=== PATIENT | male | born 1955 | race Caucasian/White ===

== ENCOUNTER 2024-03-06 15:42 | Emergency (ER) | payer MEDICARE, SELFPAY ==
[2024-03-06 15:44] VITALS: BP 169/91; PULSE 97; RESP 18; TEMP 36.2; O2SAT 96
[2024-03-06 16:33] LABS: Abs Immature Grans 0.01 10^3/uL (0.0-0.06); Absolute Basophil Count 0.01 10^3/uL (0.0-0.2); Absolute Lymphocyte Count 1.45 10^3/uL (1.2-3.4); Absolute Monocyte Count 0.46 10^3/uL (0.1-0.8); Absolute Neutrophil Count 4.27 10^3/uL (1.2-6.7); Basophils % 0.2 %; Eosinophils % 1.6 %; HGB 14.8 g/dL (13.5-17.5); Immature Grans % 0.2 %; MCH 32.7 pg (27.0-33.0); MCHC 33.6 % (32.0-36.0); MCV 97 fL (80-95); MPV 8.7 fL (8.0-11.0); Monocytes % 7.3 %; Neutrophils % 67.7 %; Platelet Count 184 10^3/uL (130-400); RBC 4.53 10^6/uL (4.36-5.78); RDW 12.8 % (11.8-14.1); RDW-SD 46.2 fL
[2024-03-06 16:40] LABS: ALT 12 U/L (16-63); AST 17 U/L (15-37); Albumin 4.1 g/dL (3.4-5.0); Alkaline Phosphatase 96 U/L (46-116); Anion Gap 5.4 mmol/L (3-11); BUN 19 mg/dL (7-18); Bilirubin, Total 0.43 mg/dL (0.2-1.0); CO2 31.6 mmol/L (21.0-32.0); CREATININE 0.9 mg/dL (0.70-1.30); Chloride 106 mmol/L (98-107); Estimated GFR 93.03 (mL/min/1.73m2); Glucose 111 mg/dL (74-106); Lipase 43 U/L (<78); Potassium 4.1 mmol/L (3.5-5.1); Sodium 143 mmol/L (136-145); Total Protein 7.7 g/dL (6.4-8.2)
[2024-03-06] MEDS: fentaNYL 100 MCG/2 ML VIAL 50 MCG IVP (16:40)
[2024-03-06] MEDS: Omnipaque 350 MG/ML 100 ML BTL IJ (16:58)
[2024-03-06] MEDS: Normal Saline - Diluent 50 ML VIAL IJ (16:59)
--- NOTE | 2024-03-06 16:59 | DI.CT_ITS ---
Exam(s) CT CHEST/ABD/PEL W EXAM: CT CHEST/ABD/PEL W CLINICAL HISTORY: right flank pain, and posterior thorax pain/fall. TECHNIQUE: Imaging Protocol: Axial computed tomography images with coronal and sagittal reformatted images were created and reviewed CONTRAST MATERIAL: Intravenous: Omnipaque 350 Contrast volume:100 ml Oral: None COMPARISON: No exams were available for comparison FINDINGS: CHEST: LUNGS: There is some calcified pleural plaque over the anterior aspect of both upper lobes. Also ove r the posterior left lower lobe. Also atelectasis in the anterior basal segment of the left lower lo be. There is no evidence of lung contusion, confluent infiltrate, pleural effusion, nor pneumothorax . No significant findings in the trachea and mainstem bronchi.. MEDIASTINUM: No evidence of sternal fracture nor mediastinal hematoma. No incidental hilar nor media stinal adenopathy. No axillary adenopathy. CARDIAC: Heart size is normal. There is no pericardial effusion.Thoracic aorta appears unremarkable. Normal size. No dissection. OSSEOUS: No rib fractures. No vertebral fractures. No significant osseous lesions. ABDOMEN: No evidence of prominent subcutaneous bruising nor fluid collections in the subcutaneous fat. There is no ascites. No evidence of mesenteric nor bowel wall hematoma. LIVER: Intact. No lacerations. No incidental lesions. No dilated intrahepatic ducts. GALLBLADDER/BILIARY: No obvious gallbladder pathology. CBD is not dilated. PANCREAS: No evidence of pancreatic mass nor dilatation of the pancreatic duct. SPLEEN: Intact. Normal size. No lacerations. Splenic granulomas noted. Splenic and portal veins a re patent. ADRENALS: No adrenal masses nor adrenal hemorrhage. KIDNEYS: Intact. No lacerations nor subcapsular hematomas.. No cysts nor solid lesions in the kidne ys. No calculi. No hydronephrosis ABDOMINAL AORTA: Intact. No aneurysm. No dissection. Aortoiliac segments also are intact LYMPH NODES: There is no retroperitoneal nor paraaortic adenopathy. ABDOMINAL WALL: No evidence of anterior abdominal wall hematomas. Small fat only containing inguinal hernias bilaterally. GI: There is evidence of previous distal small bowel surgery.There is some dilated fluid-filled small bowel loops measuring up to 3.5 cm in diameter. The colon is not collapsed. There is no ascites. PELVIS: LYMPH NODES: There is no intrapelvic nor inguinal adenopathy. GI: No evidence of appendicitis.No evidence of sigmoid diverticulitis. URINARY BLADDER: No calculi nor masses evident REPRODUCTIVE: Prostate size upper normal. OSSEOUS: There are no pelvic nor hip fractures. Sacrum intact. There are no vertebral compression f ractures nor transverse process fractures. IMPRESSION: 1. No evidence of significant acute trauma sequelae in the chest, abdomen pelvis 2. However, there is evidence of prior distal small bowel surgery and there are mildly dilated fluid- filled mid and distal small bowel loops. There is no evidence bowel wall hematoma nor mesenteric hem atoma. 3. Other incidental findings as above. Report called by myself to ER provider 03/06/2024 at 5:25 p.m. RADIATION DOSE DELIVERED: 495.18mGy.cm Total DLP DATA REPOSITORY: All CT scans at this facility are submitted to the National Radiology Data Registry (NRDR) Dose Index Registry (DIR) with the [employer] ([employer]). RADIATION OPTIMIZATION: All CT scans at this facility use at least one of these dose optimization te chniques: automated exposure control; mA and/or kV adjustment per patient size (includes targeted exa ms where dose is matched to clinical indication); or iterative reconstruction.
--- NOTE | 2024-03-06 17:02 | W.ED.GENAD ---
Discharge Plan Disposition Patient Disposition: Home Condition: Stable Discharge Details Clinical Impression: Contusion of back Primary Care Provider: Axel Jiménez ED Provider: Idalia Markham Home Meds and New Rx's Prescriptions: New morphine 15 mg tablet 15 mg PO BID PRNQty: 6 0RF Continued carbidopa-levodopa 2 tab PO QID Patient Comments: Two separate strengths 20/100 and 50/200, both administered QID duloxetine [Cymbalta] 30 mg capsule,delayed release(DR/EC) 90 mg PO DAILY risperidone 4 mg tablet 5 mg PO DAILY Discharge Instructions Instructions: Bruised Rib (DC) Additional Instructions: Use the spirometer, at least 12 times a day full inhalation and exhalation If the Lidoderm patch reapply works, you may purchase [id number] Lidoderm patches, 12 hours on, 12 hours off for the Lidoderm patches You may take ibuprofen 400 mg every 8 hours with food You may use Tylenol 650 every 6 hours, do not exceed 3 g of Tylenol daily I have written a prescription for morphine as needed for pain, this is an addictive medication and should be used sparingly, and may also cause constipation so if you have adequate pain relief with the ibuprofen and Tylenol please do not take this medication You also have to be careful with opiate medications with Parkinson's disease as it may exacerbate your symptoms If you develop shortness of breath, fever, or worsening cough please be reevaluated immediately Referrals: Axel Jiménez [Primary Care Provider] - 3 days HPI General Date/Time Provider Initiated Documentation: 03/06/24 15:52. HPI Narrative: 69-year-old gentleman with history of Parkinson's disease presents with report of fall secondary to his Parkinson's, his left leg giving out just prior to arrival. States he fell from standing landing on his right flank. Adamantly denies any head injury. Denies any history of coagulopathy. Denies any hematuria. States he has pain with breathing and movement to the affected area. He denies any chest pain and feels as though he has some shortness of breath secondary to discomfort with taking a full inhalation. Denies any additional complaints at this time. Denies any right hip pain or lower extremity pain. Denies any chest pain Related Data Home Medications ?Medication ?Instructions ?Recorded ?Confirmed carbidopa-levodopa 2 tab PO QID 03/06/24 03/06/24 duloxetine 30 mg capsule,delayed 90 mg PO DAILY 03/06/24 03/06/24 release (Cymbalta) morphine 15 mg immediate release 15 mg PO BID PRN #6 tabs 03/06/24 tablet risperidone 4 mg tablet 5 mg PO DAILY 03/06/24 03/06/24 Previous Rx's ?Medication ?Instructions ?Recorded morphine 15 mg immediate release 15 mg PO BID PRN #6 tabs 03/06/24 tablet Allergies Allergy/AdvReac Type Severity Reaction Status Date / Time doxycycline AdvReac Intermediate GI Bleeding Verified 03/06/24 15:49 General Stated Complaint: Fall/Non TraumaCriteria JANAY: 3 Exam Narrative Exam Narrative: Patient in no acute distress, alert and oriented, GCS 15, pupils equal round reactive to light and accommodation, no cervical spine tenderness no visible signs of head trauma, lungs clear to auscultation, cardiac rate rhythm regular, no abdominal tenderness, tenderness in the CVA region with an abrasion and ecchymosis, no rebound or guarding on abdominal exam, GCS 15 alert and oriented x 4, no evidence of injury to bilateral lower extremities Course Vital Signs Vital signs: Vital Signs Temperature 36.2 C L 03/06/24 15:44 Pulse 97 H 03/06/24 15:44 Respiratory Rate 18 03/06/24 15:44 Blood Pressure 169/91 H 03/06/24 15:44 Pulse Oximetry 96 03/06/24 15:44 Temperature 36.2 C L 03/06/24 15:44 Temperature Source Oral 03/06/24 15:44 Pulse 97 H 03/06/24 15:44 Respiratory Rate 18 03/06/24 15:44 Respiratory Effort Normal, Non-Labored 03/06/24 15:47 Blood Pressure 169/91 H 03/06/24 15:44 Blood Pressure Position Sitting 03/06/24 15:44 Pulse Oximetry 96 03/06/24 15:44 Oxygen Delivery Method Room Air 03/06/24 15:44 Oxygen Flow Rate 0 03/06/24 15:44 Lab/Test Results Lab/Test Results: Laboratory Tests Range/Units 03/06/24 16:18 WBC (4.4-10.8) 10^3/uL 6.30 RBC (4.36-5.78) 10^6/uL 4.53 Hgb (13.5-17.5) g/dL 14.8 Hct (40.0-50.0) % 44.0 MCV (80-95) fL 97 H MCH (27.0-33.0) pg 32.7 MCHC (32.0-36.0) % 33.6 RDW (11.8-14.1) % 12.8 Plt Count (130-400) 10^3/uL 184 MPV (8.0-11.0) fL 8.7 Immature Gran % % 0.2 Neutrophils % % 67.7 Lymphocytes % % 23.0 Monocytes % % 7.3 Eosinophils % % 1.6 Basophils % % 0.2 Nucleated RBC % (0.0-0.3) % 0.0 Absolute Neutrophils (1.2-6.7) 10^3/uL 4.27 Absolute Lymphocytes (1.2-3.4) 10^3/uL 1.45 Absolute Monocytes (0.1-0.8) 10^3/uL 0.46 Absolute Eosinophils (0.0-0.7) 10^3/uL 0.10 Absolute Basophils (0.0-0.2) 10^3/uL 0.01 Sodium (136-145) mmol/L 143 Potassium (3.5-5.1) mmol/L 4.1 Chloride (98-107) mmol/L 106 Carbon Dioxide (21.0-32.0) mmol/L 31.6 Anion Gap (3-11) mmol/L 5.4 BUN (7-18) mg/dL 19 H Creatinine (0.70-1.30) mg/dL 0.9 Est GFR (CKD-EPI 2020) (mL/min/1.73m2) 93.03 Glucose (74-106) mg/dL 111 H Calcium (8.5-10.1) mg/dL 9.0 Total Bilirubin (0.2-1.0) mg/dL 0.43 AST (15-37) U/L 17 ALT (16-63) U/L 12 L Alkaline Phosphatase (46-116) U/L 96 Total Protein (6.4-8.2) g/dL 7.7 Albumin (3.4-5.0) g/dL 4.1 Lipase (<78) U/L 43 Medical Decision Making 69-year-old male in no acute distress presenting post fall with history of Parkinson's. Secondary to his ecchymosis on right flank and age, I did order CTA chest abdomen pelvis which did not show evidence of acute abnormality, I personally discussed this feel with Dr. Langley, radiologist. CBC CMP and diagnostic labs are otherwise unremarkable. Patient remains alert and oriented, improvement of pain after receiving some fentanyl. No obvious rib fracture, however given patient's high risk for developing pneumonia, I did supply a spirometer with some pain medication at home to control pain should patient have a rib fracture that we are unable to visualize on CT. He will take at least 12 full inhalation Xanax elations daily. He is given the threshold to return with new or worsening complaints. Return precautions reviewed and patient expressed understanding. Quality:SDOH Health Related Social Needs: No Data to Display [employer] All Active Problems (Updated 03/06/24 @ 17:44 by SHEFALI Caro) Contusion of back (Acute) Social History Smoking/Tobacco Use Status: Never Smoking risk assessment performed?: Yes Drug use: Never Substance use type: does not use PAWSS Have you Been Recently Intoxicated or Drunk Within the Last 30 days?: No Have you Ever Experienced Previous Episodes of Alcohol Withdrawal?: No Have you ever Experienced Withdrawal Seizures?: No Have you ever Experienced Delirium Tremens(DT)s?: No Have you ever undergone Alcohol Rehabilitation Treatment (i.e, inpt ot outpatient treatment programs)?: No Have you ever Experienced Blackouts?: No Have you ever Combined Alcohol with other Downers within the last 90 days?: No Have you ever Combined Alcohol with any other Substance of Abuse during the last 90 days?: No Positive Blood Alcohol level on Presentation? [PCS.BAL]: No Evidence of Increased Autonomic Activity (i.e. HR>120, tremor, sweating, agitation, nausea)?: No Result: 0
[2024-03-06 17:23] VITALS: BP 146/67; PULSE 82; RESP 18; O2SAT 96
--- OUTSIDE RECORDS SUMMARY | 2024-03-06 17:29 | XMS_ITS ---
Author Organization [facility] Address [address], [place] [id number] Care Team Providers Care Call Center Assistant Name Role Phone Sendy Boothe Primary Care Provider Axel Jiménez MD [phone] Allergies Allergen (clinical drug ingredient) Drug/Non Drug Allergy documented on EMR Reaction Allergy Type Onset Date Status doxycycline Doxycycline Bloody Stool Drug Allergy Active Results Component Value Reference Range Notes CMP Reviewed date:08/13/2023 08:30:47 AM Interpretation: Performing Lab:NL1, [facility] [id number] [place], [place] [id number] Kori Olvera M.D. Notes/Report: Received Date: NON-FASTING NON-FASTING NON-FASTING GLUCOSE 89 65-99 mg/dL Fasting reference interval UREA NITROGEN (BUN) 24 7-25 mg/dL CREATININE 0.83 0.70-1.35 mg/dL EGFR 96 > OR = 60 mL/min/1.73m2 BUN/CREATININE RATIO SEE NOTE: 09-27 (calc) Not Reported: BUN and Creatinine are within reference range. SODIUM 137 135-146 mmol/L POTASSIUM 4.5 3.5-5.3 mmol/L CHLORIDE 103 98-110 mmol/L CARBON DIOXIDE 30 20-32 mmol/L CALCIUM 9.5 8.6-10.3 mg/dL PROTEIN, TOTAL 7.3 6.1-8.1 g/dL ALBUMIN 4.6 3.6-5.1 g/dL GLOBULIN 2.7 1.9-3.7 g/dL (calc) ALBUMIN/GLOBULIN RATIO 1.7 1.0-2.5 (calc) BILIRUBIN, TOTAL 0.5 0.2-1.2 mg/dL ALKALINE PHOSPHATASE 72 35-144 U/L AST 18 10-35 U/L ALT 10 9-46 U/L PSA TOTAL Reviewed date:08/13/2023 08:34:18 AM Interpretation:1.25 Performing Lab:REPLACED BY [facility], [facility] [id number] Kori Olvera M.D. Notes/Report: Received Date: NON-FASTING NON-FASTING NON-FASTING PSA, TOTAL 1.25 < OR = 4.00 ng/mL The total PSA value from this assay system is standardized against the WHO standard. The test result will be approximately 20% lower when compared to the equimolar-standardized total PSA (Mariza Scio). Comparison of serial PSA results should be interpreted with this fact in mind. This test was performed using the Siemens chemiluminescent method. Values obtained from different assay methods cannot be used interchangeably. PSA levels, regardless of value, should not be interpreted as absolute evidence of the presence or absence of disease. LIPID PANEL Reviewed date:08/13/2023 08:33:56 AM Interpretation:WNL Performing Lab:REPLACED BY [facility], [facility] [id number] Kori Olvera M.D. Notes/Report: Received Date: NON-FASTING NON-FASTING NON-FASTING CHOLESTEROL, TOTAL 211 <200 mg/dL HDL CHOLESTEROL 57 > OR = 40 mg/dL TRIGLYCERIDES 123 <150 mg/dL LDL-CHOLESTEROL 131 Reference range: <100 Desirable range <100 mg/dL for primary prevention; <70 mg/dL for patients with CHD or diabetic patients with > or = 2 CHD risk factors. LDL-C is now calculated using the Ari-Ruy calculation, which is a validated novel method providing better accuracy than the Friedewald equation in the estimation of LDL-C. Ari RAMIREZ et al. JOSE. 2013;310(19): 7917-4219 (http://[employer].ParentingInformer/faq/FUX972) CHOL/HDLC RATIO 3.7 <5.0 (calc) NON HDL CHOLESTEROL 154 <130 mg/dL (calc) For patients with diabetes plus 1 major ASCVD risk factor, treating to a non-HDL-C goal of <100 mg/dL (LDL-C of <70 mg/dL) is considered a therapeutic option. REASON FOR VISIT AWV, AAA screening, Lung screening, Due for TDaP, Shingrix, PCV send to Pharm Medications Medication SIG (Take, Route, Frequency, Duration) Notes Start Date End Date Status DULoxetine HCl 60 MG 1 capsule Orally On ce a day for 30 day(s) Active DULoxetine HCl 30 MG 1 capsule Orally On ce a day for 30 day(s) Active Carbidopa-Levodopa ER 50-200 MG 1 tablet Orally Every 4 hours Active Shingrix 50 MCG/0.5ML as directed Intram uscular for 30 days 08/09/2023 Active Prevnar 20 0.5 ML as directed Intramus cular once a day for 1 days 08/09/2023 Active Boostrix 5-2.5-18.5 LF-MCG/0.5 as directed Intramuscular for 30 days 08/09/2023 Active Carbidopa-Levodopa 25-100 MG 1 tablet Orally Every 4 hours Active busPIRone HCl 5 MG 1 tablet Orally thre e times daily Active Social History Tobacco Use: Social History Observation Description Date Details (start date - stop date) Never Smoker NA - NA Sex Assigned At : Social History Observation Description Sex Assigned At Male Tobacco Control (Standard) Question Answer Notes Tobacco use: Nonsmoker Vital Signs Temperature 97.1 degrees Fahrenheit 08/09/19 24 Blood pressure systolic 128 mmHg 08/09/19 24 Blood pressure diastolic 70 mmHg 024 Heart Rate 87 BPM 08/09/2023 Respiratory Rate 18 /min 08/09/2023 Height 72 in 08/09/2023 Weight 213 lbs 08/09/2023 BMI 28.88 kg/m2 08/09/2023 Oximetry 98 % 08/09/2023 Procedures Procedure Date Ordered Date Performed Result Body Sit e GET UP AND GO TEST 08/09/2023 08/09/2023 Fail Encounters Encounter Location Date Provider Diagnosis [address] [id number] 08/09/2023 Axel Jiménez MD Dietary counseling Z71.3 ; Encounter for annual wellness visit (AWV) in Medicare patient Z00.00 ; Parkinsons disease G20 ; Frequent urination R35.0 ; Screening for cardiovascular condition Z13.6 and Screening for diabetes mellitus Z13.1 Assessments Encounter Date Diagnosis (ICD Code) Assessment Notes Treatment Notes Treatment Clinical Notes Section Notes 08/09/2023 Dietary counseling (ICD-10 - Z71.3) HIS ANA JOINED US AND WE TOUCHED BASE ON THE ANXIETY AND MENTAL HEALTH ISSUES. THEY ARE IN AGREEMENT TO GET THE COLONOSCOPY SET UP. LABS HAVE BEEN DRAWN AND VACCINES ORDERED AND WE'LL PLAN TO COME BACK IN THE [place] FOR FLU SHOT AND INTERVAL CHECK, AND HE'LL CONTINUE FOLLOW UP WITH NEUROLOGY AT [facility] A SCHEDULED. 08/09/2023 Encounter for annual wellness visit (AWV) in Medicare patient (ICD-10 - Z00.00) HIS ANA JOINED US AND WE TOUCHED BASE ON THE ANXIETY AND MENTAL HEALTH ISSUES. THEY ARE IN AGREEMENT TO GET THE COLONOSCOPY SET UP. LABS HAVE BEEN DRAWN AND VACCINES ORDERED AND WE'LL PLAN TO COME BACK IN THE [place] FOR FLU SHOT AND INTERVAL CHECK, AND HE'LL CONTINUE FOLLOW UP WITH NEUROLOGY AT [facility] A SCHEDULED. 08/09/2023 Parkinsons disease (ICD-10 - G20) HIS ANA JOINED US AND WE TOUCHED BASE ON THE ANXIETY AND MENTAL HEALTH ISSUES. THEY ARE IN AGREEMENT TO GET THE COLONOSCOPY SET UP. LABS HAVE BEEN DRAWN AND VACCINES ORDERED AND WE'LL PLAN TO COME BACK IN THE [place] FOR FLU SHOT AND INTERVAL CHECK, AND HE'LL CONTINUE FOLLOW UP WITH NEUROLOGY AT [facility] A SCHEDULED. 08/09/2023 Frequent urination (ICD-10 - R35.0) HIS ANA JOINED US AND WE TOUCHED BASE ON THE ANXIETY AND MENTAL HEALTH ISSUES. THEY ARE IN AGREEMENT TO GET THE COLONOSCOPY SET UP. LABS HAVE BEEN DRAWN AND VACCINES ORDERED AND WE'LL PLAN TO COME BACK IN THE [place] FOR FLU SHOT AND INTERVAL CHECK, AND HE'LL CONTINUE FOLLOW UP WITH NEUROLOGY AT [facility] A SCHEDULED. 08/09/2023 Screening for cardiovascular condition (ICD-10 - Z13.6) HIS ANA JOINED US AND WE TOUCHED BASE ON THE ANXIETY AND MENTAL HEALTH ISSUES. THEY ARE IN AGREEMENT TO GET THE COLONOSCOPY SET UP. LABS HAVE BEEN DRAWN AND VACCINES ORDERED AND WE'LL PLAN TO COME BACK IN THE [place] FOR FLU SHOT AND INTERVAL CHECK, AND HE'LL CONTINUE FOLLOW UP WITH NEUROLOGY AT [facility] A SCHEDULED. 08/09/2023 Screening for diabetes mellitus (ICD-10 - Z13.1) HIS ANA JOINED US AND WE TOUCHED BASE ON THE ANXIETY AND MENTAL HEALTH ISSUES. THEY ARE IN AGREEMENT TO GET THE COLONOSCOPY SET UP. LABS HAVE BEEN DRAWN AND VACCINES ORDERED AND WE'LL PLAN TO COME BACK IN THE [place] FOR FLU SHOT AND INTERVAL CHECK, AND HE'LL CONTINUE FOLLOW UP WITH NEUROLOGY AT [facility] A SCHEDULED. 08/09/[address] Axel Jiménez by Mik Dutton, [employer] medical receptionist, on 08/09/2023. I, Dr. Axel Jiménez, have personally reviewed and agreed with the information entered by the scribe. HIS ANA JOINED US AND WE TOUCHED BASE ON THE ANXIETY AND MENTAL HEALTH ISSUES. THEY ARE IN AGREEMENT TO GET THE COLONOSCOPY SET UP. LABS HAVE BEEN DRAWN AND VACCINES ORDERED AND WE'LL PLAN TO COME BACK IN THE [place] FOR FLU SHOT AND INTERVAL CHECK, AND HE'LL CONTINUE FOLLOW UP WITH NEUROLOGY AT [facility] A SCHEDULED. Plan Of Treatment Medication Medication Name Sig Start Date Stop Date Notes Shingrix 50 MCG/0.5ML as directed Intram uscular for 30 days 08/09/2023 Prevnar 20 0.5 ML as directed Intramus cular once a day for 1 days 08/09/2023 Boostrix 5-2.5-18.5 LF-MCG/0.5 as directed Intramuscular for 30 days 08/09/2023 Treatment Notes Assessment Notes Other Scribed for Dr. Alf Jiménez by Mik Dutton, [employer] medical receptionist, on 08/09/2023. I, Dr. Axel Jiménez, have personally reviewed and agreed with the information entered by the scribe. Next Appt Details Follow Up: 1 Year,prn, Reaso n: AWV Progress Notes * Cristian EMMANUEL DDOB:[birth year] (68 yo M)Acc No.[id number]:08/09/2023 Progress Note Patient:?Cristian EMMANUEL Provider:?Axel Jiménez M.D. :1955???Age:68 Y???Sex:Male Oral e:08/09/2023 Phone: Address:[address] [place], [place]-[id number] Pcp:Sendy Boothe Subjective: * Chief Complaints: * ???1. AWV. 2. AAA screening, Lung screening. 3. Due for TDaP, Shingrix, PCV send to Pharm. * HPI: ???INTERIM HISTORY::? PATIENT IS A 68-YEAR-OLD MALE PRESENTING FOR A AWV. HE REPORTS HE IS DOING WELL. REPORTS PAIN IN HIS LEFT KNEE AND FEELING OFF BALANCE DUE TO PARKINSONS DISEASE. NOTES RECENT FALL, HE WAS ABLE TO GET UP OK BUT GETTING TO THE POINT WHERE HE NEEDS HELP GETTING UP. OPEN TO PT.? HE ALSO NOTES HE WAS TOLD HE HAS A HERNIA DURING A LAPAROSCOPIC PROCEDURE. HE HAS HAD NO ISSUES. BLADDER IS GOOD, URINATING EVERY 3 HRS, BOWELS ARE REGULAR. EATING IS GOOD, ABLE TO SWALLOW WITHOUT ANY DIFFICULTY. HE ALSO REPORTS ANXIETY LIKE WHEN DRIVING?TO SEE HIS FAMILY IN [place], [place], WHEN HIS IS OUT OF TOWN. HAS A SUPPORT GROUP. HE IS RETIRED. LIVES WITH HIS AND 2 CATS. DAUGHTER LIVES IN [facility]. FAMILY HX OF PARKINSONS IN [place] SISTER, GRANDFATHER. FOLLOWS UP WITH NEUROLOGY. LIPIDS 3 YEARS AGO WERE GOOD. NO OTHER ISSUES TODAY. ???DIET/EXERCISE::?DIET:?Do you follow a particular diet??None on file ?EXERCISE:?Do you currently exercise??None on file ?How many days per week do you exercise??2 to 3 ?On a day you exercise, how many minutes do you spend exercising??1 hour or more ?Types of exercise:?Core strengthening,Other: ?FOOD INSECURITY QUESTIONS?In the last 12 months, I worried whether my food would run out before I got money to buy more.?Never true ?In the last 12 months, the food that I bought just didn't last, and I didn't have money to get more.?Never true ?In the last 12 months, I couldn't afford to eat balanced meals.?Never true ?Do you receive any type of supplemental food assistance??No ???[facility]::?OTHER PROVIDERS:?Has the patient seen any providers outside of [facility] since their last appointment with us??No ?[facility]?[place] [facility] reviewed??. ???PREVENTIVE MEDICINE::?DENTAL SCREENING:?Does the patient receive routine dental care??No ?Date of last dental exam:?04/08/2023 ?Where does the patient go for routine dental care??[facility] ?VISION SCREENING:?Does the patient receive routine eye exams??No ?Date of last eye exam:?Where does the patient go for routine eye care??[facility]?Would you like to become in the next year??. ???Depression Screening:?PHQ-2 (2015 Edition)?Little interest or pleasure in doing things??Not at all ?Total Score?0 ???DENTAL::?DENTAL HOME ?Does Patient have dental home??Yes ?Has the patient been seen in the past six months??No ?Last dental appointment date?REQUIRED DATA::?ADVANCE DIRECTIVE:?Does the patient have an Advance Directive??No ?Does [facility] have a copy of the Advance Directive on file??No . ?Was the patient offered the Advance Directive paperwork to create one??Patient was offered paperwork but declined it ?Was the importance of having an Advance Directive on file with PCP explained to the patient??Yes ?Date Advanced Directive was last addressed with patient:?08/09/2023 ?HEALTH LITERACY:?How often do you need to have someone help when you read instructions, pamphlets or other materials from your doctor or pharmacy??1-Never ?OPIOID SCREENING?Does the patient have a current opioid prescription??No . ???MENTAL HEALTH::?MINI MENTAL STATUS:?Immediate Recall Gabriella, Chair, Hand (2 trials even if correct)?Gabriella, Chair, Hand First trial, . ?Delayed Recall several minutes later with no cue?Pass ?Draw the face of a clock showing all 12 numbers?Pass ?Draw the time to be ten minutes past eleven.?Pass ???A CHECKLIST FOR YOUR MEDICARE ANNUAL WELLNESS VISIT::?AWV QUESTIONNAIRE:?During the past 4 weeks, how much have you been bothered by emotional problems such as feeling anxious, depressed, irritable, sad or downhearted and blue??Moderately ?During the past 4 weeks, has your physical and emotional health limited your social activities with family, friends, neighbors or groups??Slightly ?During the past 4 weeks, how much bodily pain have you generally had??Mild pain ?During the past 4 weeks, was someone available to help you if you needed and wanted help??Yes, as much as I wanted ?During the past 4 weeks, what was the hardest physical activity you could do for at least 2 minutes??Very heavy ?Can you get places out of walking distance without help??Yes ?Can you shop for groceries or clothes without help??No ?Can you prepare your own meals??Yes ?Can you do your own housework without help??No ?Can you handle your own money without help??No ?Do you need help eating, bathing, dressing or getting around your home??Yes ?During the past 4 weeks, how would you rate your health in general??Good ?How have things been going for you during the past 4 weeks??Good and bad parts about equal ?Are you having difficulties driving your car??Not applicable, I do not use a car ?Do you always fasten your seat belt when you are in a car??Yes, usually ?How often during the past 4 weeks have you been bothered by a fall or feeling dizzy when standing up??Sometimes ?How often during the past 4 weeks have you been bothered by sexual problems??Seldom ?How often during the past 4 weeks have you been bothered by trouble eating well??Seldom ?How often during the past 4 weeks have you been bothered by teeth or dentures??Seldom ?How often during the past 4 weeks have you been bothered by problems using the telephone??Seldom ?How often during the past 4 weeks have you been bothered by feeling tired or fatigued??Often ?Have you fallen 2 or more times in the past year??Yes ?Are you a smoker??Yes and I might quit ?During the past 4 weeks, how many drinks of wine, beer or other alcoholic beverages did you have??10 or more drinks per week ?Did you exercise for about 20 minutes 3 or more days a week??No, I usually don't exercise this much ?Have you been given any information to help you with hazards in your house that might hurt you??No ?Have you been given any information to help you with keeping track of your medications??No ?How often do you have trouble taking medicines the way you have been told to take them??I always take them as prescribed ?How confident are you that you can control and manage most of your health problems??Very confident ?Are you afraid of falling??No * ROS:?Pertinent positives and negatives noted in HPI. * Medical History:?Parkinsons, Depression, Hernia, Gerd. * Surgical History:?Appendecto my, perforated 11/2019, Dopamine pump removal 04/2019, Deep brain stimulator 04/2018, Percutaneous endoscopic j-tube X6 months 2018, Bilateral inguinal hernia repair as an . * Hospitalization/Major Diagno stic Procedure:?Appendectomy w/perforation- 3 days [facility] 11/2019, Deep Brain Stimulator- 2 days [place], [place] 04/2018. * Family History:?Mother: dece ased, Parkinsons, diagnosed with Unspecified heart disease.?Father: , Parkinsons, Prostate Cancer, Migraines, diagnosed with Other malignant neoplasm of unspecified site, Unspecified cerebral artery occlusion with cerebral infarction.?Sister: alive.?3 daughter(s) - healthy. .? * Social History:?TOBACCO USE:?Tobacco Control (Standard)?Tobacco use:?Nonsmoker * Medications:?Taking busPIRon e HCl 5 MG Tablet 1 tablet Orally three times daily , Taking Carbidopa-Levodopa 25-100 MG Tablet 1 tablet Orally Every 4 hours , Taking Carbidopa-Levodopa ER 50-200 MG Tablet Extended Release 1 tablet Orally Every 4 hours , Taking DULoxetine HCl 60 MG Capsule Delayed Release Particles 1 capsule Orally Once a day , Taking DULoxetine HCl 30 MG Capsule Delayed Release Sprinkle 1 capsule Orally Once a day , Discontinued Vitamin B3 tablet 1 tablet orally once daily , Discontinued Clotrimazole 1 % Ointment 1 application Externally Twice a day , Medication List reviewed and reconciled with the patient * Allergies:?Doxycycline: Bloo dy Stool - Allergy. Objective: * Vitals:?Temp:97.1F, HR:87BPM , RR:18/min, BP:128/70mmHg, Oxygen Sat: 98 %, Height: 72 in, Weight: 213 lbs, BMI:28.88Index, Wt-k.62, Ht-cm: 182.88. * Examination: ???General Examination: ?GENERAL APPEARANCE:?BRIGHT, ALERT, COMFORTABLE.?EYES:?PUPILS EQUAL AND REACTIVE.?ORAL CAVITY:?BENIGN.?NECK/THYROID:?NO NECK NODES.?HEART:?SOUNDS BENIGN, CAROTIDS 2+, STRONG, NO BRUIT..?LUNGS:?CLEAR.?ABDOMEN:?BELLY SOFT AND BENIGN.?SKIN:?DRY, NO WORRISOME LESION FROM WAIST UP.?NEUROLOGIC:?COGWHEELING IN BOTH ARMS, MASK FACES DESPITE SOME HUMOR IN THE CONVERSATION, HE NEVER SMILED. ?FINGER TO NOSE POINTING WAS NORMAL, SMOOTH. HE WAS ABLE TO GET HIS CHIN TO HIS SHOULDERS BILATERALLY. ?SHORT BASED SHUFFLING GAIT, HIS INTACT STIMULATOR IN THE CHEST, DEEP BRAIN STIMULATOR.?EXTREMITIES:?TRACE, IF ANY EDEMA.? Assessment: * Assessment: 1.?Encounter for annual well ness visit (AWV) in Medicare patient - Z00.00 (Primary)?2.?Dietary counseling - Z71.3?3.?Parkinsons disease - G20?4.?Frequent urination - R35.0?5.?Screening for cardiovascular condition - Z13.6?6.?Screening for diabetes mellitus - Z13.1? HIS ANA JOINED US AND WE TOUCHED BASE ON THE ANXIETY AND MENTAL HEALTH ISSUES. THEY ARE IN AGREEMENT TO GET THE COLONOSCOPY SET UP. LABS HAVE BEEN DRAWN AND VACCINES ORDERED AND WE'LL PLAN TO COME BACK IN THE [place] FOR FLU SHOT AND INTERVAL CHECK, AND HE'LL CONTINUE FOLLOW UP WITH NEUROLOGY AT [facility] A SCHEDULED. Plan: * Treatment: 2.?Frequent urination?LAB: PSA TOTAL ? Value Reference Range ?PSA TOTAL 1.25 < OR = 4.00 - ng/mL * Tino DESHPANDE Axel 2023 07:35:13 AM EDT >PLEASE TELL CRISTIAN HIS LABS ARE NORMAL - Marco CHRISTOPHER MA, Mikki 08/13/2023 08:34:10 AM EDT > Spoke with ptThis lab was reviewed by Mikki Last MA on 08/13/2023 at 08:34 AM EDT 3.?Screening for cardiovascular condition?LAB: LIPID PANEL* ? Value Reference Range ?CHOLESTEROL 211 H <200 - mg/d L * ?TRIGLYCERIDES 123 <150 - mg /dL * ?LDL 131 H - mg/dL (calc) * ?HDL 57 > OR = 40 - mg/ dL * ?RISK 3.7 <5.0 - (calc) * ?NON-HDL CHOLESTEROL 154 H <13 0 - mg/dL (calc) * Tino DESHPANDE Axel 2023 07:35:13 AM EDT >PLEASE TELL CRISTIAN HIS LABS ARE NORMAL - GOOD Marco OVERTON MA, Mikki 08/13/2023 08:33:54 AM EDT > Spoke wiht ptThis lab was reviewed by Mikki Last MA on 08/13/2023 at 08:33 AM EDT 4.?Screening for diabetes mellitus?LAB: CMP* ? Value Reference Range ?GLUCOSE 89 65-99 - mg/dL * ?BUN 24 7-25 - mg/dL * ?CREATININE 0.83 0.70-1.35 - mg/dL * ?SODIUM 137 135-146 - mmol/ L * ?POTASSIUM 4.5 3.5-5.3 - mmo l/L * ?CHLORIDE 103 98-110 - mmol/ L * ?CARBON DIOXIDE 30 20-32 - mmol/L * ?CALCIUM 9.5 8.6-10.3 - mg/d L * ?BUN/CREATININE RATIO SEE NOTE: 6- 22 - (calc) * ?AST/SGOT 18 10-35 - U/L * ?ALT/SGPT 10 9-46 - U/L * ?ALKALINE PHOSPHATASE 72 35 -144 - U/L * ?BILIRUBIN TOTAL 0.5 0.2-1.2 - mg/dL * ?ALBUMIN 4.6 3.6-5.1 - g/dL * ?PROTEIN TOTAL 7.3 6.1-8.1 - g/dL * ?ALBUMIN/GLOBULIN RATIO 1.7 1.0-2.5 - (calc) * ?GLOBULIN 2.7 1.9-3.7 - g/dL (calc) * ?EGFR 96 > OR = 60 - mL/ min/1.73m2 * Tino DESHPANDE, Axel Mota 2023 07:35:13 AM EDT >PLEASE TELL CRISTIAN HIS LABS ARE NORMAL - GOOD [facility], ENEDINA Lara Angela 08/13/2023 08:30:30 AM EDT > Spoke with ptThis lab was reviewed by Mikki Last MA on 08/13/2023 at 08:30 AM EDT 5.?Others? Start Boostrix Suspension Prefilled Syringe, 5-2.5-18.5 LF-MCG/0.5, as directed, Intramuscular, 30 days, 1, Refills 0;?Start Prevnar 20 Suspension Prefilled Syringe, 0.5 ML, as directed, Intramuscular, once a day, 1 days, 1, Refills 2;?Start Shingrix Suspension Reconstituted, 50 MCG/0.5ML, as directed, Intramuscular, 30 days, 1, Refills 2.?? Notes:Scribed for Dr. Axel Jiménez by Mik Dutton, virtual medical receptionist, on 08/09/2023. I, Dr. Axel Jiménez, have personally reviewed and agreed with the information entered by the scribe.?? * Procedure Orders:? * ?Procedure: GET UP AND G O TEST (Performed Date - 08/09/2023)?Fail * Procedure Codes:?G0468 FQ VISIT IPPE/AWV, 75721 PT-FOCUSED HLTH RISK ASSMT, 32811 PHYSICAL MEDICINE PROCEDURE, 80980 PHYSICAL MEDICINE PROCEDURE, G0439 ANNUAL WELLNESS SUBSEQUENT VISIT * Follow Up:?1 Year,prn (Reaso n: AWV) * * Sign off status: Completed true * Provider:?Axel Jiménez M.D. Oral e:?08/09/2023 Generated for Allisoni haritha/Melva/eTransmitting on:?03/06/2024 05:29 PM EST History and Physical Notes * HPI (History of Present Illness) Category Sub-Category Detail Notes Category Not es REQUIRED DATA: ADVANCE DIRECTIVE: Does the emilia ent have an Advance Directive?: No Does [facility] have a copy of the Advance Dir ective on file?: No . Was the patient offered the Advance Directive paperwork to create one?: Patient was offered paperwork but declined it Was the importance of having an Advance Directive on file with PCP explained to the patient?: Yes Date Advanced Directive was last address ed with patient:: 08/09/2023 HEALTH LITERACY: How often do you nee d to have someone help when you read instructions, pamphlets or other materials from your doctor or pharmacy?: 1-Never OPIOID SCREENING Does the patient have a current opioid prescription?: No . DIET/EXERCISE: EXERCISE: Do you currently exercise?: None on file How many days per week do you exercise?: 2 to 3 On a day you exercise, how m any minutes do you spend exercising?: 1 hour or more Types of exercise:: Core strengthening,O ther: DIET: Do you follow a particular diet? : None on file FOOD INSECURITY QUESTIONS In the last 12 months, I worried whether my food would run out before I got money to buy more. : Never true In the last 12 months, the f ood that I bought just didn't last, and I didn't have money to get more.: Never true In the last 12 months, I couldn't afford to eat balanced meals. : Never true Do you receive any type of supplemental food assistance?: No PREVENTIVE MEDICINE: DENTAL SCREENING: Does the patient receive routine dental care?: No Date of last dental exam:: 04/08/2023 Where does the patient go for routine de ntal care?: [facility] VISION SCREENING: Does the patient receive routi ne eye exams?: No Date of last eye exam:: Where does the patient go for routine ey e care?: [facility] Would you like to beco me in the next year?: . [facility]: OTHER PROVIDERS: Has the patient seen any providers outside of [facility] since their last appointment with us?: No [facility] [place] [facility] reviewed?: . MENTAL HEALTH: MINI MENTAL STATUS: Immediate Re call Gabriella Chair, Hand (2 trials even if correct): Gabriella Chair, Hand First trial, . Delayed Recall several minutes later wit h no cue: Pass Draw the face of a clock showing all 12 numbers: Pass Draw the time to be ten minutes past dario esther. : Pass DENTAL: DENTAL HOME Does Patient have dental home?: Yes ?Has the patient been seen in the past s ix months?: No ?Last dental appointment date?: A CHECKLIST FOR YOUR MEDICAR E ANNUAL WELLNESS VISIT: AWV QUESTIONNAIRE: During the past 4 weeks, how much have you been bothered by emotional problems such as feeling anxious, depressed, irritable, sad or downhearted and blue?: Moderately During the past 4 weeks, has your physical and emotional health limited your social activities with family, friends, neighbors or groups?: Slightly During the past 4 weeks, how much bodily pain have you generally had?: Mild pain During the past 4 weeks, was someone available to help you if you needed and wanted help?: Yes, as much as I wanted During the past 4 weeks, wha t was the hardest physical activity you could do for at least 2 minutes?: Very heavy Can you get places out of walking distan ce without help?: Yes Can you shop for groceries or clothes wi thout help?: No Can you prepare your own meals?: Yes Can you do your own housework without he lp?: No Can you handle your own money without he lp?: No Do you need help eating, bathing, dressi ng or getting around your home?: Yes During the past 4 weeks, how would you r ate your health in general?: Good How have things been going f or you during the past 4 weeks?: Good and bad parts about equal Are you having difficulties driving your car?: Not applicable, I do not use a car Do you always fasten your seat belt when you are in a car?: Yes, usually How often during the past 4 weeks have you been bothered by a fall or feeling dizzy when standing up?: Sometimes How often during the past 4 weeks have you been bothered by sexual problems?: Seldom How often during the past 4 weeks have you been bothered by trouble eating well?: Seldom How often during the past 4 weeks have you been bothered by teeth or dentures?: Seldom How often during the past 4 weeks have you been bothered by problems using the telephone?: Seldom How often during the past 4 weeks have you been bothered by feeling tired or fatigued?: Often Have you fallen 2 or more times in the p ast year?: Yes Are you a smoker?: Yes and I might quit During the past 4 weeks, how many drinks of wine, beer or other alcoholic beverages did you have?: 10 or more drinks per week Did you exercise for about 2 0 minutes 3 or more days a week?: No, I usually don't exercise this much Have you been given any info rmation to help you with hazards in your house that might hurt you?: No Have you been given any info rmation to help you with keeping track of your medications?: No How often do you have troubl e taking medicines the way you have been told to take them?: I always take them as prescribed How confident are you that y ou can control and manage most of your health problems?: Very confident Are you afraid of falling?: No Depression Screening PHQ-2 (2015 Edition) Little interest or pleasure in doing things?: Not at all Total Score: 0 Examination Category Sub-Category Detail Notes Category Not es General Examination GENERAL APPEARANCE: BRIGHT, ALERT, COMFORTABLE EYES: PUPILS EQUAL AND CAROLANN CTIVE NECK/THYROID: NO NECK NODES HEART: SOUNDS BENIGN, CAROT IDS 2+, STRONG, NO BRUIT. LUNGS: CLEAR ABDOMEN: BELLY SOFT AND BENIG N NEUROLOGIC: COGWHEELING IN BOTH ARMS, MASK FACES DESPITE SOME HUMOR IN THE CONVERSATION, HE NEVER SMILED. FINGER TO NOSE POINTING WAS NORMAL, SMOOTH. HE WAS ABLE TO GET HIS CHIN TO HIS SHOULDERS BILATERALLY. SHORT BASED SHUFFLING GAIT, HIS INTACT STIMULATOR IN THE CHEST, DEEP BRAIN STIMULATOR SKIN: DRY, NO WORRISOME LE JULIO FROM WAIST UP EXTREMITIES: TRACE, IF ANY EDEMA ORAL CAVITY: BENIGN
--- OUTSIDE RECORDS SUMMARY | 2024-03-06 17:29 | XMS_ITS ---
Author Organization [facility] Address [address] [place] [phone] Care Team Providers Care Dietetic Technician Registered Name Role Phone Sendy Boothe Primary Care Provider Aamir Reddy Unavailable Allergies Allergen (clinical drug ingredient) Drug/Non Drug Allergy documented on EMR Reaction Allergy Type Onset Date Status doxycycline Doxycycline Bloody Stool Drug Allergy Active Reason For Referral Reason Pt seen, note scanne d to chart for provider review 08/15/23 LR APPT 08/14/23 at 2:15pm LR FAXED TO POD 07/19/23 LP. Toe joint pain and candidal infection, please eval and treat. FOOT XR ORDER SENT TO . Please contact our office within 7 days to notify [facility] of scheduled appointment Diagnosis 1 Toe joint pain, righ t (M25.571) Referral Organization [facility] Referring Provider First Name Aamir Referring Provider Last Name Modesta jain Referring Provider Speciality Family Med icine Referred Provider [facility], opal Referred Provider Specialty Podiatry General Notes Sugar Koehler 07/07 01:03:50 PM >FAXED TO Rell DUMAS Lauren 08/07/2023 05:13:46 PM >Per Isreal pt scheduled for 08/14/23 at 2:15pmRell Lauren 08/15/2023 08:04:29 AM >Per Isreal pt seen 08/13, note scanned to chart for provider review. Referral Priority Routine Referral Appointment Date 08/14/2023 REASON FOR VISIT FU toe Medications Medication SIG (Take, Route, Frequency, Duration) Notes Start Date End Date Status Clotrimazole 1 % 1 application Contract Coordinator ally Twice a day for 14 days 07/08/2023 Active Vitamin B3 1 tablet orally once daily Active busPIRone HCl 5 MG 1 tablet Orally thre e times daily Active Carbidopa-Levodopa 25-100 MG 1 tablet Orally Every 4 hours Active Carbidopa-Levodopa ER 50-200 MG 1 tablet Orally Every 4 hours Active DULoxetine HCl 60 MG 1 capsule Orally On ce a day for 30 day(s) Active DULoxetine HCl 30 MG 1 capsule Orally On ce a day for 30 day(s) Active Social History Tobacco Use: Social History Observation Description Date Details (start date - stop date) Never Smoker NA - NA Sex Assigned At : Social History Observation Description Sex Assigned At Male Tobacco Control (Standard) Question Answer Notes Tobacco use: Nonsmoker Vital Signs Temperature 97.7 degrees Fahrenheit 07/18/19 24 Blood pressure systolic 150 mmHg 07/18/19 24 Blood pressure diastolic 88 mmHg 024 Heart Rate 87 BPM 07/18/2023 Height 72 in 07/18/2023 Oximetry 98 % 07/18/2023 Encounters Encounter Location Date Provider Diagnosis [address] [address] 07/18/2023 Aamir Reddy Toe joint pain, right M25.571 Assessments Encounter Date Diagnosis (ICD Code) Assessment Notes Treatment Notes Treatment Clinical Notes Section Notes 07/18/2023 Toe joint pain, right (ICD-10 - M25.571) [place] feet appears better than last visit. Erythema has resolved. He is still having toe pain and exudate between the toes has not much improved. Uric acid was negative. Ordered an x-ray of the right foot to rule out bone infection other process causing the pain. Will refer him to Podiatry for further evaluation and management. I think he needs debridement between his toes to allow for better healing. 07/18/2023 Other Scribed for Aamir Reddy by Leigh Lozoya Branch Account Manager on July 18 2023. I, Dr. Aamir Reddy, have personally reviewed and agree with the information entered by the scribe Cristian's feet appears better than last visit. Erythema has resolved. He is still having toe pain and exudate between the toes has not much improved. Uric acid was negative. Ordered an x-ray of the right foot to rule out bone infection other process causing the pain. Will refer him to Podiatry for further evaluation and management. I think he needs debridement between his toes to allow for better healing. Plan Of Treatment Treatment Notes Assessment Notes Other Scribed for Aamir Dyson by Leigh Lozoya Branch Account Manager on July 18 2023. I, Dr. Aamir Reddy, have personally reviewed and agree with the information entered by the scribe Referrals Referral Date Details 07/18/2023 07/18/2023, Pt seen, note scanned to chart for provider review 08/15/23 LR APPT 08/14/23 at 2:15pm LR FAXED TO POD 07/19/23 LP. Toe joint pain and candidal infection, please eval and treat. FOOT XR ORDER SENT TO . Please contact our office within 7 days to notify [facility] of scheduled appointment, Podiatry [facility] Next Appt Details Follow Up: prn, Reason: Progress Notes * Cristian EMMANUEL DDOB:[birth year] (68 yo M)Acc No.[id number]:07/18/2023 OV Short Patient:?Cristian EMMANUEL Provider:?Aamir Reddy MD :1955???Age:68 Y???Sex:Male Oral e:07/18/2023 Phone: Address:[address] [place] [address] [address], [place], [id number] Pcp:Sendy Boothe Subjective: * Chief Complaints: * ???FU toe * HPI: ???INTERIM HISTORY::? 68-year-old male presents today for follow-up visit. At the last visit, he was treated for cellulitis and candidal infection with antibiotics and antifungal cream. He is soaking his feet in warm water and symptoms are better. He is still having pain in the toe joint but better. ???[place] OF CARE::?Other Providers:?Has the patient seen any providers outside of [facility] since their last appointment with us??No * ROS:?Pertinent positives and negatives noted in the HPI . * Medical History:? * Surgical History:?Appendecto my, perforated 11/2019Dopamine pump removal 04/2019Deep brain stimulator 04/2018Percutaneous endoscopic j-tube X6 months 2018Bilateral inguinal hernia repair as an * Hospitalization/Major Diagno stic Procedure:?Appendectomy w/perforation- 3 days [facility] 11/2019Deep Brain Stimulator- 2 days [place], [place] 04/2018 * Family History:?Mother: dece ased, Parkinsons, diagnosed with Unspecified heart disease.?Father: , Parkinsons, Prostate Cancer, Migraines, diagnosed with Other malignant neoplasm of unspecified site, Unspecified cerebral artery occlusion with cerebral infarction.?Sister: alive.?3 daughter(s) - healthy. .? * Social History:?TOBACCO USE:?Tobacco Control (Standard)?Tobacco use:?Nonsmoker * Medications:?TakingbusPIRone HCl 5 MG Tablet 1 tablet Orally three times daily Carbidopa-Levodopa 25-100 MG Tablet 1 tablet Orally Every 4 hours Carbidopa- Levodopa ER 50-200 MG Tablet Extended Release 1 tablet Orally Every 4 hours DULoxetine HCl 60 MG Capsule Delayed Release Particles 1 capsule Orally Once a day DULoxetine HCl 30 MG Capsule Delayed Release Sprinkle 1 capsule Orally Once a day Vitamin B3 tablet 1 tablet orally once daily Clotrimazole 1 % Ointment 1 application Externally Twice a day Taking busPIRone HCl 5 MG Tablet 1 tablet Orally three times daily Taking Carbidopa-Levodopa 25-100 MG Tablet 1 tablet Orally Every 4 hours Taking Carbidopa-Levodopa ER 50-200 MG Tablet Extended Release 1 tablet Orally Every 4 hours Taking DULoxetine HCl 60 MG Capsule Delayed Release Particles 1 capsule Orally Once a day Taking DULoxetine HCl 30 MG Capsule Delayed Release Sprinkle 1 capsule Orally Once a day Taking Vitamin B3 tablet 1 tablet orally once daily Taking Clotrimazole 1 % Ointment 1 application Externally Twice a day DiscontinuedCephalexin 500 MG Capsule 1 capsule Orally Four times a day Medication List reviewed and reconciled with the patientDiscontinued Cephalexin 500 MG Capsule 1 capsule Orally Four times a day Medication List reviewed and reconciled with the patient * Allergies:?Doxycycline: Bloo dy Stool - Allergyno[Allergies Verified] Objective: * Vitals:?Temp:97.7F, HR:87BPM , BP:150/88mmHg, Oxygen Sat: 98 %, Height: 72 in, Ht-cm: 182.88. * Examination: ???General Examination: ?GENERAL APPEARANCE:?alert and pleasant, in no acute distress , alert and pleasant, in no acute distress.?SKIN:??In between 4th and 5th toe significant white exudate and moist. Tender to touch PIP and DIP joint..? Assessment: * Assessment: 1.?Toe joint pain, right - M 25.571 (Primary)? Cristian's feet appears better t rivero last visit. Erythema has resolved. He is still having toe pain and exudate between the toes has not much improved. Uric acid was negative. Ordered an x-ray of the right foot to rule out bone infection other process causing the pain. Will refer him to Podiatry for further evaluation and management. I think he needs debridement between his toes to allow for better healing. Plan: * Treatment: 2.?Others? Notes: Scribed for Aamir Reddy by Leigh Lozoya Branch Account Manager on July 18 2023. I, Dr. Aamir Reddy, have personally reviewed and agree with the information entered by the scribe?? * Procedure Codes:?G0467 [facility] VISIT ESTABLISHED PATIENT * Follow Up:?prn * * Sign off status: Completed true * Provider:?Aamir Rdedy MD Date: ?07/18/2023 Generated for Leonie mg/Melva/eTshaunasmitting on:?03/06/2024 05:29 PM EST History and Physical Notes * HPI (History of Present Illness) Category Sub-Category Detail Notes Category Not es [place] [place] [facility] CARE: Other Providers: Has the patient seen any providers outside of [facility] since their last appointment with us?: No Examination Category Sub-Category Detail Notes Category Not es General Examination GENERAL APPEARANCE: alert an d pleasant, in no acute distress , alert and pleasant, in no acute distress SKIN: In between 4th and 5 th toe significant white exudate and moist. Tender to touch PIP and DIP joint. Consultation Request Notes Referral Date Referring Provider Referred Provider Not 07/18/2023 Aamir Reddy, Podiatry Pt seen, note scanned to chart for provider review 08/15/23 LR APPT 08/14/23 at 2:15pm LR FAXED TO POD 07/19/23 LP. Toe joint pain and candidal infection, please eval and treat. FOOT XR ORDER SENT TO . Please contact our office within 7 days to notify [facility] of scheduled appointment
--- OUTSIDE RECORDS SUMMARY | 2024-03-06 17:29 | XMS_ITS ---
Author Organization [facility] Address [address] [place] [phone] Care Team Providers Care Platform Supervisor Name Role Phone sukhwinderRohithfiorella Sendy Primary Care Provider Axel Jiménez MD REASON FOR VISIT Screening for colo Social History Sex Assigned At : Social History Observation Description Sex Assigned At Male Encounters Encounter Location Date Provider Diagnosis [address] [address] 08/13/2023 Axel Jiménez MD Screening for colon cancer Z12.11 Assessments Encounter Date Diagnosis (ICD Code) Assessment Notes Treatment Notes Treatment Clinical Notes Section Notes 08/13/2023 Screening for colon cancer (ICD-10 - Z12.11) Plan Of Treatment Pending Test Test Name Order Date COLONOSCOPY 08/13/2023 Progress Notes * Cristian EMMANUEL DDOB:[birth year] (68 yo M)Acc No.[id number]:08/13/2023 Patient:?Cristian EMMANUEL :1955???Age:68 Y???Sex:Male Phone: Address:[address], [place], [address] Subjective: * Chief Complaints: * ???Screening for colo * Medical History:? * Surgical History:? * Hospitalization/Major Diagno stic Procedure:? * Medications:? Objective: * Vitals:? * Physical Examination:? Assessment: * Assessment: 1.?Screening for colon cance r - Z12.11 (Primary)? Plan: * Treatment: * Procedure Codes:? * true * Date:? Generated for Leonie mg/Melva/Rocio on:?03/06/2024 05:28 PM EST
--- OUTSIDE RECORDS SUMMARY | 2024-03-06 17:30 | XMS_ITS | Patient Health Record ---
Author Organization [facility] Address [address], [place] [id number] Care Team Providers Care Occupational Analyst Name Role Phone Sendy Boothe Primary Care Provider [phone] Tino DESHPANDE, Axel Unavailable Aamir Reddy Unavailable Allergies Allergen (clinical drug ingredient) Drug/Non Drug Allergy documented on EMR Reaction Allergy Type Onset Date Status doxycycline Doxycycline Bloody Stool Drug Allergy Active Results Component Value Reference Range Notes CMP Reviewed date:08/13/2023 08:30:47 AM Interpretation: Performing Lab:NL1, [facility] [id number] [place], [place] [id number] Kori Olvera M.D. Notes/Report: Received Date: NON-FASTING NON-FASTING NON-FASTING GLUCOSE 89 65-99 mg/dL Fasting reference interval UREA NITROGEN (BUN) 24 7-25 mg/dL CREATININE 0.83 0.70-1.35 mg/dL EGFR 96 > OR = 60 mL/min/1.73m2 BUN/CREATININE RATIO SEE NOTE: 6-22 (calc) Not Reported: BUN and Creatinine are [...] TOTAL Reviewed date:08/13/2023 08:34:18 AM Interpretation:1.25 Performing Lab:[facility], [facility] [address] Kori Olvera M.D. Notes/Report: Received Date: [id number] NON-FASTING NON-FASTING NON-FASTING PSA, TOTAL 1.25 < OR = 4.00 ng/mL The total PSA value from this assay system is standardized against the WHO standard. The test result will be approximately 20% lower when compared to the equimolar-standardi zed total PSA ([employer]). Comparison of serial PSA results should be interpreted with this fact in mind. This test was performed using the Siemens chemiluminescent method. Values obtained from different assay methods cannot be used interchangeably. PSA levels, regardless of value, should not be interpreted as absolute evidence of the presence or absence of disease. LIPID PANEL Reviewed date:08/13/2023 08:33:56 AM Interpretation:WNL Performing Lab:[facility], [email or web address] [id number] Kori Olvera M.D. Notes/Report: Received Date: [id number] NON-FASTING NON-FASTING NON-FASTING CHOLESTEROL, TOTAL 211 <200 mg/dL HDL CHOLESTEROL 57 > OR = 40 mg/dL TRIGLYCERIDES 123 <150 mg/dL LDL-CHOLESTEROL 131 Reference range: <100 Desirable range <100 mg/dL for primary prevention; <70 mg/dL for patients with CHD or diabetic patients with > or = 2 CHD risk factors. LDL-C is now calculated using the Vilma calculation, which is a validated novel method providing better accuracy than the Friedewald equation in the estimation of LDL-C. Ari RAMIREZ et al. JOSE. 2013;310(19): 6933-3670 (http://education.[employer].Externautics /faq/YZV152) CHOL/HDLC RATIO 3.7 <5.0 (calc) NON HDL CHOLESTEROL 154 <130 mg/dL (calc) For patients with diabetes plus 1 major ASCVD risk factor, treating to a non-HDL-C goal of <100 mg/dL (LDL-C of <70 mg/dL) is considered a therapeutic option. XR Foot Complete 3+ Views Ri t Reviewed date:07/24/2023 08:28:25 AM Interpretation: Performing Lab: Notes/Report: EXAMINATION: XR Foot Complete 3+ Views Right CLINICAL HISTORY: toe joint pain,right, concern for osteomyelitis TECHNIQUE: 3 views of the right foot COMPARISON: None FINDINGS: No evidence of osseous destructive changes. Fixed flexion deformity. Degenerative productive change at the first metatarsophalangeal joint with lateral joint space narrowing and marginal productive changes. Ossification of the Achilles tendon. IMPRESSION: No plain radiographic evidence of osteomyelitis. Thank you for letting us participate in the care of this patient. If you are a health care provider and have any questions regarding this report, please contact the number below. For patients who have questions please contact the health careers adviser that requested your imaging first. Electronically signed by: Shivam Hendricks MD, [facility] ([phone]), at 07/22/2023 1:46 PM XR Foot Complete 3+ Views Right EXAMINATION: XR Foot Complete 3+ Views Right XR Foot Complete 3+ Views Right CLINICAL HISTORY: toe joint pain,right, concern for osteomyelitis XR Foot Complete 3+ Views Right TECHNIQUE: XR Foot Complete 3+ Views Right 3 views of the right foot XR Foot Complete 3+ Views Right COMPARISON: XR Foot Complete 3+ Views Right None XR Foot Complete 3+ Views Right FINDINGS: XR Foot Complete 3+ Views Right No evidence of osseous destructive changes. Fixed flexion deformity. XR Foot Complete 3+ Views Right Degenerative productive change at the first metatarsophalangeal joint with XR Foot Complete 3+ Views Right lateral joint space narrowing and marginal productive changes. Ossification of XR Foot Complete 3+ Views Right the Achilles tendon. XR Foot Complete 3+ Views Right IMPRESSION: XR Foot Complete 3+ Views Right No plain radiographic evidence of osteomyelitis. XR Foot Complete 3+ Views Right Thank you for letting us participate in the care of this patient. If you are a XR Foot Complete 3+ Views Right health care provider and have any questions regarding this report, please XR Foot Complete 3+ Views Right contact the number below. For patients who have questions please contact the XR Foot Complete 3+ Views Right health careers adviser that requested your imaging first. XR Foot Complete 3+ Views Right ACID Reviewed date:07/11/2023 01:43:19 PM Interpretation: Performing Lab:NL1, [facility] [id number] [place], [place] [id number] Kori Olvera M.D. Notes/Report: Received Date: NON-FASTING URIC ACID 4.1 4.0-8.0 mg/dL Therapeutic ta rget for gout patients: <6.0 mg/dL Reason For Referral Reason Pt seen, note jaclynne d to chart for provider review 08/15/23 LR APPT 08/14/23 at 2:15pm LR FAXED TO POD 07/19/23 LP. Toe joint pain and candidal infection, please eval and treat. FOOT XR ORDER SENT TO . Please contact our office within 7 days to notify LR of scheduled appointment Diagnosis 1 Toe joint pain, righ t (M25.571) Referral Organization [facility] Referring Provider First Name Aamir Referring Provider Last Name Modesta jain Referring Provider Speciality [facility] icine Referred Provider [facility], opal Referred Provider Specialty Podiatry General Notes Sugar Koehler 07/07 01:03:50 PM >FAXED TO Rell DUMAS Lauren 08/07/2023 05:13:46 PM >Per Isreal pt scheduled for 08/14/23 at 2:15pm, Dianna Zacarias 08/15/2023 08:04:29 AM >Per Isreal pt seen 08/13, note scanned to chart for provider review. Referral Priority Routine Referral Appointment Date 08/14/2023 Reason Please refer to EDGARDO chadwick or tracking 08/14/23 LR FAXED TO [facility] 08/13/23 LP. Colon Cancer Screening Provider ordered colonoscopy through diagnostic images. I created a referral for the colonoscopy, attached appropriated documents and faxed to the facility. Closing referral and will track in the open diagnostic order. Please contact our office within 7 days to notify LR of scheduled appointment Diagnosis 1 Colon cancer screeni haritha (Z12.11) Referral Organization [facility] Referring Provider First Name Axel Referring Provider Last Name Tino Caban Referring Provider Speciality [facility] icinomi [facility]erred [facility] [place] [place] [facility]erred Provider Specialty Gastroentero logy General Notes Sugar Koehler 10/2023 12:51:07 PM >FAXED TO Rell NAVARRO Lauren 08/14/2023 02:05:44 PM >Provider ordered colonoscopy through diagnostic images. I created a referral for the colonoscopy, attached appropriated documents and faxed to the facility. Closing referral and will track in the open diagnostic order. Referral Priority Routine Medications Medication SIG (Take, Route, Frequency, Duration) Notes Start Date End Date Status Shingrix 50 MCG/0.5ML as directed Intram uscular for 30 days 08/09/2023 Active Prevnar 20 0.5 ML as directed Intramus cular once a day for 1 days 08/09/2023 Active Boostrix 5-2.5-18.5 LF-MCG/0.5 as directed Intramuscular for 30 days 08/09/2023 Active DULoxetine HCl 60 MG 1 capsule Orally On ce a day for 30 day(s) Active DULoxetine HCl 30 MG 1 capsule Orally On ce a day for 30 day(s) Active Carbidopa-Levodopa 25-100 MG 1 tablet Orally Every 4 hours Active Carbidopa-Levodopa ER 50-200 MG 1 tablet Orally Every 4 hours Active busPIRone HCl 5 MG 1 tablet Orally thre e times daily Active Immunizations Vaccine Route Administration Date Status Comme nts COVID-19 Kendall/Lm & Lm Unknown 06/17/2020 Administered COVID-19 Moderna 64792 Unknown 03/08/2021 Administered INFLUENZA 18 YRS TO 64 YRS OLD-STATE SUPPLIED IM Intramuscular 01/31/2021 Administered Social History Tobacco Use: Social History Observation Description Date Details (start date - stop date) Never Smoker NA - NA Sex Assigned At : Social History Observation Description Sex Assigned At Male SMOKING STATUS: Question Answer Notes Are you a: Nonsmoker Tobacco Control (Standard) Question Answer Notes Tobacco use: Nonsmoker Problems Problem Type SNOMED Code ICD Code Onset Dates Problem Status W/U Status Risk Notes Problem Actinic keratosis (L57.0) Active confirmed Problem Gastroesophageal reflux disease (993783362) GERD (gastroesophag eal reflux disease) (K21.9) Active confirmed Problem 957659821 Frequent falls (R29.6) Active confirmed Problem Parkinsons disease (33420710) Parkinsons disease (G20) Active confirmed Vital Signs Heart Rate 87 BPM 08/09/2023 Temperature 97.1 degrees Fahrenheit 08/09/2023 Respiratory Rate 18 /min 08/09/2023 Blood pressure diastolic 70 mmHg 08/09/2023 Oximetry 98 % 08/09/2023 Height 72 in 08/09/2023 Blood pressure systolic 128 mmHg 08/09/2023 Weight 213 lbs 08/09/2023 BMI 28.88 kg/m2 08/09/2023 Procedures Procedure Date Ordered Date Performed Result Body Sit e GET UP AND GO TEST 08/09/2023 08/09/2023 Fail Encounters Encounter Location Date Provider Diagnosis [address] [address] 07/08/2023 Aamir Lessac-Chenen Joint pain M25.50 ; Acute cellulitis L03.90 and Candidal intertrigo B37.[address] [address] 07/18/2023 Aamir Lessac-Chenen Toe joint pain, right M25.[address] [address] 08/09/2023 Axel Jimnéez MD Dietary counseling Z71.3 ; Encounter for annual wellness visit (AWV) in Medicare patient Z00.00 ; Parkinsons disease G20 ; Frequent urination R35.0 ; Screening for cardiovascular condition Z13.6 and Screening for diabetes mellitus Z13.[address] [address] 08/13/2023 Axel Jiménez MD Screening for colon cancer Z12.11 Assessments Encounter Date Diagnosis (ICD Code) Assessment Notes Treatment Notes Treatment Clinical Notes Section Notes 07/08/2023 Joint pain (ICD-10 - M25.50) Pt to lab, sitting in chair. Venous blood draw, #23 G needle, Right AC, 1st attempt. Sample obtained, pressure bandage applied, pt tolerated well. Label applied to sample. ENEDINA Leo Cellulitis of right fifth toe, point of entry likely skin breakdown from durga. Will treat both with antibiotics and antifungal cream. His description of intermittent joint pain also makes me consider gout. Will check uric acid levels today. 07/08/2023 Acute cellulitis (ICD-10 - L03.90) Cellulitis of right fifth toe, point of entry likely skin breakdown from durga. Will treat both with antibiotics and antifungal cream. His description of intermittent joint pain also makes me consider gout. Will check uric acid levels today. 07/18/2023 Toe joint pain, right (ICD-10 - M25.571) Cristian's feet appears better than last visit. [...] his toes to allow for better healing. 08/09/2023 Dietary counseling (ICD-10 - Z71.3) HIS ANA JOINED US AND WE TOUCHED BASE ON THE ANXIETY AND MENTAL HEALTH ISSUES. THEY ARE IN AGREEMENT TO GET THE COLONOSCOPY SET UP. LABS HAVE BEEN DRAWN AND VACCINES ORDERED AND WE'LL PLAN TO COME BACK IN THE FALL FOR FLU SHOT AND INTERVAL CHECK, AND HE'LL CONTINUE FOLLOW UP WITH NEUROLOGY AT [facility] A SCHEDULED. 08/09/2023 Encounter for annual [...] HE'LL CONTINUE FOLLOW UP WITH NEUROLOGY AT [facility] A SCHEDULED. 08/13/2023 Screening for colon cancer (ICD-10 - Z12.11) 08/09/2023 Parkinsons disease (ICD-10 - G20) HIS ANA JOINED US AND WE TOUCHED BASE ON THE ANXIETY AND MENTAL HEALTH ISSUES. THEY ARE IN AGREEMENT TO GET THE COLONOSCOPY SET UP. LABS HAVE BEEN DRAWN AND VACCINES ORDERED AND WE'LL PLAN TO COME BACK IN THE FALL FOR FLU SHOT AND INTERVAL CHECK, AND HE'LL CONTINUE FOLLOW UP WITH NEUROLOGY AT [facility] A SCHEDULED. 07/08/2023 Candidal intertrigo (ICD-10 - B37.2) Cellulitis of right fifth toe, point of entry likely skin breakdown from durga. Will treat both with antibiotics and antifungal cream. His description of intermittent joint pain also makes me consider gout. Will check uric acid levels today. 08/09/2023 Frequent urination (ICD-10 - R35.0) HIS ANA JOINED US AND WE TOUCHED BASE ON THE ANXIETY AND MENTAL HEALTH ISSUES. THEY ARE IN AGREEMENT TO GET THE COLONOSCOPY SET UP. LABS HAVE BEEN DRAWN AND VACCINES ORDERED AND WE'LL PLAN TO COME BACK IN THE FALL FOR FLU SHOT AND INTERVAL CHECK, AND HE'LL CONTINUE FOLLOW UP WITH NEUROLOGY AT [facility] A SCHEDULED. 08/09/2023 Screening for cardiovascular [...] HE'LL CONTINUE FOLLOW UP WITH NEUROLOGY AT [facility] A SCHEDULED. 08/09/2023 Screening for diabetes [...] HE'LL CONTINUE FOLLOW UP WITH NEUROLOGY AT [facility] A SCHEDULED. 07/08/2023 Other Scribed for Aamir Reddy by Leigh Lozoya Optical Lathe Operator on July 08 2023. I, Dr. Aamir Reddy, have personally reviewed and agree with the information entered by the scribe Cellulitis of right fifth toe, point of entry likely skin breakdown from durga. Will treat both with antibiotics and antifungal cream. His description of intermittent joint pain also makes me consider gout. Will check uric acid levels today. 07/18/2023 Other Scribed for Aamir Reddy by Leigh Lozoya Optical Lathe Operator on July 18 2023. I, Dr. Aamir [...] his toes to allow for better healing. 08/09/[address] Axel Jiménez by Mik Dutton, virtual dental assistant medical assistant, on 08/09/2023. I, Dr. Axel Jiménez, have [...] HE'LL CONTINUE FOLLOW UP WITH NEUROLOGY AT [facility] A SCHEDULED. Plan Of Treatment Pending Test Test Name Order Date COLONOSCOPY 08/13/2023 Insurance Providers Payer Name Payer Address Payer Phone Subscriber Number Group Number Insured Name Patient Relationship to Insured Coverage Start Date Coverage End Date MEDICARE FQHC [address] [place] [address] [id number] Cristian Emmanuel Self - patient is the insured Medical (General) History Medical History History ICD Code Parkinsons Depression Hernia Gerd Surgical History Surgery Date(Month/Year) Appendectomy, perforated 11/2019 Dopamine pump removal 04/2019 Deep brain stimulator 04/2018 Percutaneous endoscopic j-tube X6 months 2018 Bilateral inguinal hernia repair as an i nfant Hospitalization History Reason Date(Month/Year) Deep Brain Stimulator- [address] 04/2018 Appendectomy w/perforation- 3 days [facility] 11/2019
[2024-03-06 18:10] LABS: Bilirubin Negative (Negative); Blood Negative (Negative); Clarity Clear (Clear); Glucose Negative (Negative); Ketones Trace mg/dL (Negative); Leukocyte Esterase Negative (Negative); Nitrite Negative (Negative); Specific Gravity 1.015 (1.005-1.025); Urobilinogen 0.2 mg/dL (Up to 0.2)
[2024-03-06] MEDS: MORPHine IR 15 MG TAB, 4 TABS/BTL PO (18:17)
[2024-03-06] MEDS: Ketorolac 15 MG/ML VIAL 7.5 MG IVP (18:18)
[2024-03-06] MEDS: Lidocaine 5% Patch 1 PATCH TP (18:19)
[2024-03-06 18:35] VITALS: BP 126/73; PULSE 90; RESP 18; O2SAT 95
== END 2024-03-06 18:36 | disposition home or self-care (01) ==
PROVIDERS: Emergency Provider Physician Assistant; PCP Family Medicine
DX: S30.1XXA Contusion of abdominal wall, initial encounter (principal); G20.A1 Parkinson's disease without dyskinesia, without mention of fluctuations; W18.09XA Striking against other object with subsequent fall, initial encounter; Y93.01 Activity, walking, marching and hiking; Y92.012 Bathroom of single-family (private) house as the place of occurrence of the external cause
CPT/HCPCS: 74177; 80053; 83690; 96374; 96375; 99285; 71260; 81003; 85025; 99284; J1885; J3010; J3490

== ENCOUNTER 2024-05-26 03:14 | Inpatient (IN) | payer MEDICARE, SELFPAY ==
[2024-05-26] VITALS (69 sets, daily range): BP systolic 109–178; BP diastolic 69–93; PULSE 64–108; RESP 13–28; TEMP 36.5–39.8; O2SAT 92–97
--- NOTE | 2024-05-26 03:00 | RT.EKG_ITS ---
APPROVED REPORT Exam: Resting ECG Reason for Exam: weakness, fall Patient Location: E HR:106 bpm ECG Measurements Heart Rate 106 AXIS IN 121 P 64 QRSd 160 QRS 84 QT 380 T -10 QTc 506 Conclusion Sinus tachycardia...rate> 99 Probable left atrial enlargement...P >50mS, <-0.10mV V1 Right bundle branch block...QRSd>120, terminal axis(90,270) no ST segment or T wave abnormalities to suggest occlusive [place]
[2024-05-26] MEDS: ACETAMINOPHEN 1,000 MG/100 ML BAG 400 MG IVPB (03:39)
--- NOTE | 2024-05-26 03:54 | ED.GENADUL_ITS ---
Discharge Plan Disposition Patient Disposition: Admit to [facility] Condition: Serious Discharge Details Chief Complaint: RespSymp Clinical Impression: COVID Primary Care Provider: Axel Jiménez ED Provider: Lauren Espino Home Meds and New Rx's Prescriptions: No Action carbidopa-levodopa 2 tab PO QID Patient Comments: Two separate strengths 25/100 and 50/200, both administered QID duloxetine [Cymbalta] 30 mg capsule,delayed release(DR/EC) 90 mg PO DAILY bisacodyl 5 mg tablet,delayed release (DR/EC) 10 mg PO BID buspirone 5 mg tablet 5 mg PO TID cholecalciferol (vitamin D3) 1,250 mcg (50,000 unit) capsule 1,250 mcg PO QWEEK clotrimazole 1 % cream 1 applic topical DAILY PRN multivitamin with iron Tablet 1 tab PO DAILY polyethylene glycol 3350 [Miralax] 17 gram/dose powder 17 g PO DAILY PRN HPI General Mode of arrival: EMS . Date/Time Provider Initiated Documentation: 05/26/24 03:23 . Limitations to Documentation: no limitations . Information obtained by: patient and EMS . HPI Narrative: 69yo M with hx Parkinson's, ambulates with walker at baseline, presenting via EMS for generalized weakness. COVID + yesterday, symptoms started 4 days ago. Today he fell out of bed, landing on his left side. Did not strike his head or lose consciousness. Was unable to get back into bed himself and unable to get him back up into bed so they called EMS. He reports sore throat and 'rattling' in his chest. Denies chest pain or shortness of breath. + fevers. No nausea or vomiting. No focal headache, neck pain, focal weakness, numbness, vertigo, or vision changes. Otherwise in his usual state of health. Related Data Home Medications ?Medication ?Instructions ?Recorded ?Confirmed carbidopa-levodopa 2 tab PO QID 03/06/24 05/26/24 duloxetine 30 mg capsule,delayed 90 mg PO DAILY 03/06/24 05/26/24 release (Cymbalta) bisacodyl 5 mg tablet,delayed 10 mg PO BID 05/26/24 05/26/24 release buspirone 5 mg tablet 5 mg PO TID 05/26/24 05/26/24 cholecalciferol (vitamin D3) 1,250 1,250 mcg PO QWEEK 05/26/24 05/26/24 mcg (50,000 unit) capsule clotrimazole 1 % topical cream 1 applic topical DAILY PRN 05/26/24 05/26/24 multivitamin with iron 1 tab PO DAILY 05/26/24 05/26/24 polyethylene glycol 3350 17 17 g PO DAILY PRN 05/26/24 05/26/24 gram/dose oral powder (Miralax) Allergies Allergy/AdvReac Type Severity Reaction Status Date / Time doxycycline AdvReac Intermediate GI Bleeding Verified 05/26/24 03:21 General Stated Complaint: RespSymp JANAY: 3 Review of Systems Narrative: see HPI Exam Narrative Exam Narrative: GENERAL: Alert, chronically ill appearing, in no acute distress. SKIN: Warm and well perfused. Skin tear to left forearm HEAD: Atraumatic, normocephalic without edema, discoloration or evidence of trauma. EYES: PERRL. No scleral icterus or conjunctival injection. EARS: No hemotympanum. MOUTH: No malocclusion or trismus. Moist mucus membranes without blood. NECK: Trachea midline. Neck supple. CV: ?Tacfhycardiac, regular, no murmurs appreciated CHEST: Chest symmetric with respirations. No chest wall tenderness. Lungs are clear to auscultation bilaterally. ABDOMEN:Soft, nondistended, nontender. BACK: No abrasions, skin openings, or ecchymosis. Spine without bony tenderness PELVIC: Pelvis stable, nontender to lateral compression MSK: No gross deformities.. Tolerates full range of motion of extremities without tenderness. NEURO: GCS 15.? PERRL.? EOMI.? Motor- 4/5 strength symmetric bilateral upper and lower extremi tiesflexors/extensors, ankle dorsiflexors and planter flexors. Sensation- ?Intact to light touch and symmetric multiple dermatomes including upper and lower extremities Course Vital Signs Vital signs: Vital Signs Temperature 39.4 C H 05/26/24 03:15 Pulse 108 H 05/26/24 03:15 Respiratory Rate 24 05/26/24 03:15 Blood Pressure 147/76 H 05/26/24 03:15 Pulse Oximetry 92 05/26/24 03:15 Temperature 39.4 C H 05/26/24 03:21 Temperature Source Oral 05/26/24 03:15 Pulse 102 H 05/26/24 03:45 Pulse 103 H 05/26/24 03:45 Respiratory Rate 22 05/26/24 03:45 Respiratory Effort Short of Breath 05/26/24 03:48 Respiratory Depth Normal 05/26/24 03:48 Blood Pressure 161/72 H 05/26/24 03:45 Blood Pressure Mean 102 05/26/24 03:45 Blood Pressure Position Sitting 05/26/24 03:15 Pulse Oximetry 93 05/26/24 03:45 Oxygen Delivery Method Room Air 05/26/24 03:15 Oxygen Flow Rate 0 05/26/24 03:15 Lab/Test Results Lab/Test Results: 05/26/24 03:52 Blood Blood Culture - Pending 05/26/24 03:52 Blood Blood Culture - Pending Medical Decision Making 69yo M with hx Parkinson's, deep brain stimulator, ambulates with walker at baseline, presenting via EMS for generalized weakness. COVID + yesterday, symptoms started 4 days ago, today fell out of bed, landing on his left side. No HS or LOC, denies pain or injury. Tachycardiac and febrile on arrival. Lungs CTAB, no increased WOB, small skin tear to left arm otherwise no traumatic findings on exam. Global weakness. Would not get CT imaging. Will given tylenol for fever, try albuterol for 'rattling' in chest though lungs clear on exam. Likely viral given known COVID; will sent blood cultures but would not treat empirically with IVF or abx at this time. -EKG sinus tachycardiac, RBBB, no ST segment or T wave abnormalities to suggest occlusive [place]. No prior available. -Labs reviewed as below, CBC reassuring with no leukocytosis or anemia, CMP with no actionable abnormalities, lactate normal. Awaiting urine. -Respiratory viral swab COVID + -CXR independently reviewed, no focal pneumonia or pneumothorax on my view; radiology read below with no acute findings. On reassessment patient reassessment remains profoundly weak, has difficulty evening pulling up to sitting in bed. Unable to ambulate. C/o sore throat; given IV toradol. Discussed with [facility] hospitalist Dr. Zhu; accepted to medicine service. Awaiting admission orders and transfer to the floor. Imaging Data Radiologic Study: Imaging: X-Ray Radiologist's impression: IMPRESSION: 1. Implanted left chest wall device with lead coursing up the left neck. 2. Lungs are clear. Low lung volumes. Lab Data Lab results reviewed: Yes I reviewed the patient's lab results. Labs: 05/26/24 04:05 Blood Blood Culture - Pending 05/26/24 04:00 Blood Blood Culture - Pending Laboratory Tests Range/Units 05/26/24 05/26/24 05/26/24 03:22 04:00 04:06 WBC (4.4-10.8) 10^3/uL 7.58 RBC (4.36-5.78) 10^6/uL 4.48 Hgb (13.5-17.5) g/dL 14.6 Hct (40.0-50.0) % 42.3 MCV (80-95) fL 94 MCH (27.0-33.0) pg 32.6 MCHC (32.0-36.0) % 34.5 RDW (11.8-14.1) % 13.0 Plt Count (130-400) 10^3/uL 143 MPV (8.0-11.0) fL 9.4 Immature Gran % % 0.4 Neutrophils % % 87.5 Lymphocytes % % 3.6 Monocytes % % 8.4 Eosinophils % % 0.0 Basophils % % 0.1 Nucleated RBC % (0.0-0.3) % 0.0 Absolute Neutrophils (1.2-6.7) 10^3/uL 6.63 Absolute Lymphocytes (1.2-3.4) 10^3/uL 0.27 L Absolute Monocytes (0.1-0.8) 10^3/uL 0.64 Absolute Eosinophils (0.0-0.7) 10^3/uL 0.00 Absolute Basophils (0.0-0.2) 10^3/uL 0.01 VBG Lactate (<or=2.0) mmol/L 0.9 Sodium (136-145) mmol/L 139 Potassium (3.5-5.1) mmol/L 3.8 Chloride (98-107) mmol/L 102 Carbon Dioxide (21.0-32.0) mmol/L 25.9 Anion Gap (3-11) mmol/L 11.1 H BUN (7-18) mg/dL 20 H Creatinine (0.70-1.30) mg/dL 1.0 Est GFR (CKD-EPI 2020) (mL/min/1.73m2) 81.98 Glucose (74-106) mg/dL 138 H Calcium (8.5-10.1) mg/dL 8.7 Magnesium (1.8-2.4) mg/dL 1.9 Total Bilirubin (0.2-1.0) mg/dL 0.41 AST (15-37) U/L 36 ALT (16-63) U/L 10 L Alkaline Phosphatase (46-116) U/L 88 Total Protein (6.4-8.2) g/dL 7.6 Albumin (3.4-5.0) g/dL 3.8 COVID-19 Source Nasopharynx SARS-CoV-2 (PCR) (Negative) Positive A Influenza Type A (PCR) (Negative) Negative Influenza Type B (PCR) (Negative) Negative RSV (PCR) (Negative) Negative Quality:SDOH Health Related Social Needs: No Data to Display PFSH All Active Problems (Updated 05/26/24 @ 06:02 by Lauren Espino MD) COVID (Acute) Social History Smoking/Tobacco Use Status: Never Smoking risk assessment performed?: Yes Alcohol Intake: current Alcohol Intake frequency: a few times a week Drug use: Never Substance use type: does not use Do you feel safe at home: Yes Do you feel safe in your relationship?: Yes
[2024-05-26 04:00] LABS: Abs Immature Grans 0.03 10^3/uL (0.0-0.06); Absolute Basophil Count 0.01 10^3/uL (0.0-0.2); Absolute Lymphocyte Count 0.27 10^3/uL (1.2-3.4); Absolute Monocyte Count 0.64 10^3/uL (0.1-0.8); Absolute Neutrophil Count 6.63 10^3/uL (1.2-6.7); Basophils % 0.1 %; HCT 42.3 % (40.0-50.0); HGB 14.6 g/dL (13.5-17.5); Immature Grans % 0.4 %; Lymphocytes % 3.6 %; MCH 32.6 pg (27.0-33.0); MCHC 34.5 % (32.0-36.0); MCV 94 fL (80-95); MPV 9.4 fL (8.0-11.0); Monocytes % 8.4 %; Neutrophils % 87.5 %; Platelet Count 143 10^3/uL (130-400); RBC 4.48 10^6/uL (4.36-5.78); RDW-SD 45.5 fL; WBC 7.58 10^3/uL (4.4-10.8)
[2024-05-26] MEDS: Albuterol HFA 8 GM 60 PUFF INH IH (04:07)
[2024-05-26] MEDS: Inhaler, Assist Device 1 EACH MC (04:08)
[2024-05-26 04:11] LABS: Lactate 0.9 mmol/L (<or=2.0)
[2024-05-26 04:21] LABS: ALT 10 U/L (16-63); AST 36 U/L (15-37); Albumin 3.8 g/dL (3.4-5.0); Alkaline Phosphatase 88 U/L (46-116); Anion Gap 11.1 mmol/L (3-11); BUN 20 mg/dL (7-18); Bilirubin, Total 0.41 mg/dL (0.2-1.0); CO2 25.9 mmol/L (21.0-32.0); Calcium 8.7 mg/dL (8.5-10.1); Chloride 102 mmol/L (98-107); Estimated GFR 81.98 (mL/min/1.73m2); Glucose 138 mg/dL (74-106); Magnesium 1.9 mg/dL (1.8-2.4); Potassium 3.8 mmol/L (3.5-5.1); Sodium 139 mmol/L (136-145); Total Protein 7.6 g/dL (6.4-8.2)
[2024-05-26 04:52] LABS: Influenza A PCR Negative (Negative); Influenza B PCR Negative (Negative); RSV PCR Negative (Negative)
[2024-05-26 04:56] LABS: COVID-19 PCR Positive (Negative); Source Nasopharynx
--- NOTE | 2024-05-26 04:59 | DI.RAD_ITS ---
Exam(s) XR CHEST 2V PA LATERAL EXAM: XR CHEST 2V PA LATERAL CLINICAL HISTORY: SOB, COVID + TECHNIQUE: 2D digital imaging was performed of the chest. Three images were obtained. PA and later al views were obtained. COMPARISON: CT CT CHEST/ABD/PEL W from 03/06/2024 FINDINGS: MEDIASTINUM: Normal. HEART: Normal. PULMONARY VASCULATURE: Normal. LUNGS: Clear. PLEURAL SPACE: No pleural effusion or pneumothorax. BONE:Within normal limits for the patient's age. OTHER FINDINGS:There is a monitoring device again seen in the soft tissues overlying the left chest w all. IMPRESSION: No acute pulmonary findings. DATA REPOSITORY: RADIATION DOSE DELIVERED:
--- NOTE | 2024-05-26 05:04 | DI.VRAD_ITS ---
PROCEDURE INFORMATION: Exam: XR Chest Exam date and time: 05/26/2024 4:41 AM Age: 69 years old Clinical indication: Shortness of breath; Prior surgery; Surgery date: 6+ months; Surgery type: Pacemaker; SOB, covid+ TECHNIQUE: Imaging protocol: Radiologic exam of the chest. Views: 2 views. COMPARISON: CT CHEST/ABD/PEL W 03/06/2024 4:47 PM FINDINGS: Tubes, catheters and devices: Implanted left chest wall device with lead coursing up the left neck. Lungs: Lungs are clear. Low lung volumes. Pleural spaces: Unremarkable. No pleural effusion. No pneumothorax. Heart/Mediastinum: Unremarkable. No cardiomegaly. Bones/joints: Unremarkable. IMPRESSION: 1. Implanted left chest wall device with lead coursing up the left neck. 2. Lungs are clear. Low lung volumes. Dictated and Authenticated by: Wilbur Cuellar MD. Orderin Kenzie Aguilar MD
[2024-05-26] MEDS: Ketorolac 15 MG/ML VIAL IVP (05:25)
--- NOTE | 2024-05-26 05:52 | HPE_ITS ---
Date of service: 05/26/24 Time of Service: 05:52 Assessment and Plan Assessment and plan (1) COVID: Status: Acute Assessment and plan: COVID, without findings of pneumonia or hypoxia. Patient at risk of more sever disease, will begin Remdesivir. No indication for steroids at present. As to the ratlling in chest would trial chest PT, does not seem to be an issue of pneumonia or bronchospasm. History of Present Illness History of Present Illness Chief Complaint: weakness Narrative: 69 male with Parkinson's, here with 4 days of cough, weakness, sore throat, nausea. Slipped out of bed (no significant trauma), unable to get up so EMS summoned. Here in ER findings of note for temp to 39.4, O2 sats mid-high 90s on RA, COVID positive swab and negative CXR. Patient given Albuterol updraft trial due to rattling in chest (not a smoker) without effect. Due to profound weakness I was asked to admit. Review of Systems Narrative: per HPI PFSH All Active Problems (Updated 05/26/24 @ 06:02 by Lauren Espino MD) COVID (Acute) Social History Smoking/Tobacco Use Status: Never Smoking risk assessment performed?: Yes Alcohol Intake: current Alcohol Intake frequency: a few times a week Drug use: Never Substance use type: does not use Do you feel safe at home: Yes Do you feel safe in your relationship?: Yes Meds Allergies and Home Medications Allergies Allergy/AdvReac Type Severity Reaction Status Date / Time doxycycline AdvReac Intermediate GI Bleeding Verified 05/26/24 03:21 Home Medications ?Medication ?Instructions ?Recorded ?Confirmed ?Type carbidopa-levodopa 2 tab PO QID 03/06/24 05/26/24 History duloxetine 30 mg capsule,delayed 90 mg PO DAILY 03/06/24 05/26/24 History release (Cymbalta) bisacodyl 5 mg tablet,delayed 10 mg PO BID 05/26/24 05/26/24 History release buspirone 5 mg tablet 5 mg PO TID 05/26/24 05/26/24 History cholecalciferol (vitamin D3) 1,250 1,250 mcg PO QWEEK 05/26/24 05/26/24 History mcg (50,000 unit) capsule clotrimazole 1 % topical cream 1 applic topical DAILY PRN 05/26/24 05/26/24 History multivitamin with iron 1 tab PO DAILY 05/26/24 05/26/24 History polyethylene glycol 3350 17 17 g PO DAILY PRN 05/26/24 05/26/24 History gram/dose oral powder (Miralax) Exam Narrative Exam Narrative: 164/91, 91, 39.4, 21, 94% RA. HEENT Parkinsonian facies; neck supple; lungs diffuse coarse rales and rhonchi; heart irr/irr; abdomen soft and NT; extremities w/o edema; neuro Ox3, moves all 4s Results Labs 05/26/24 03:22 05/26/24 03:22 Labs: Laboratory Results - last 24 hr 05/26/24 05/26/24 05/26/24 03:22 04:00 04:06 WBC 7.58 RBC 4.48 Hgb 14.6 Hct 42.3 MCV 94 MCH 32.6 MCHC 34.5 RDW 13.0 Plt Count 143 MPV 9.4 Immature Gran % 0.4 Neutrophils % 87.5 Lymphocytes % 3.6 Monocytes % 8.4 Eosinophils % 0.0 Basophils % 0.1 Nucleated RBC % 0.0 Absolute Neutrophils 6.63 Absolute Lymphocytes 0.27 L Absolute Monocytes 0.64 Absolute Eosinophils 0.00 Absolute Basophils 0.01 VBG Lactate 0.9 Sodium 139 Potassium 3.8 Chloride 102 Carbon Dioxide 25.9 Anion Gap 11.1 H BUN 20 H Creatinine 1.0 Est GFR (CKD-EPI 2020) 81.98 Glucose 138 H Calcium 8.7 Magnesium 1.9 Total Bilirubin 0.41 AST 36 ALT 10 L Alkaline Phosphatase 88 Total Protein 7.6 Albumin 3.8 COVID-19 Source Nasopharynx SARS-CoV-2 (PCR) Positive A Influenza Type A (PCR) Negative Influenza Type B (PCR) Negative RSV (PCR) Negative Last Vital Signs Temp 39.4 C H 05/26/24 03:21 Pulse 91 H 05/26/24 05:20 Resp 21 05/26/24 05:20 BP 164/91 H 05/26/24 05:15 Pulse Ox 94 05/26/24 05:20 Time Spent Time spent with Patient: <40 minutes Time was spent: preparing to see the patient(eg.review tests), obtaining and/or reviewing separately otained hiistory, ordering medications,tests, procedures, referring, communicating with other health assurance services manager health care and indepentently interpreting results
[2024-05-26 07:26] LABS: Bilirubin Small (Negative); Blood Large (Negative); Clarity Sl Cloudy (Clear); Glucose Negative (Negative); Ketones 15 mg/dL (Negative); Leukocyte Esterase Negative (Negative); Nitrite Negative (Negative); Specific Gravity 1.025 (1.005-1.025); Urobilinogen 0.2 mg/dL (Up to 0.2)
[2024-05-26 07:55] LABS: Bacteria Rare HPF (Negative); Crystals Rare Amorphous HPF (Negative); Epithelial Cells Rare HPF (Negative); Mucus Moderate (Negative); RBC 0-2 HPF (0-2)
[2024-05-26 07:56] LABS: C & S Indicated? No
[2024-05-26] MEDS: busPIRone 5 MG TAB PO ×3 (08:53→20:40)
[2024-05-26] MEDS: DULoxetine 30 MG CAP 90 MG PO (08:54)
[2024-05-26] MEDS: Multivitamin TAB 1 TAB PO (08:54)
[2024-05-26] MEDS: Bisacodyl 5 MG TABEC 10 MG PO ×2 (08:54→20:40)
--- NOTE | 2024-05-26 10:57 | W.PC.ACHO ---
Registration Status: Primary Language: Preferred Language: ED Information & Data Chief Complaint RespSymp 05/26/24 03:54 Triage Note Covid + as of yesterday 05/26/24 03:15 morning, has Parkinson's, very weak, fell out of bed and has skin tear on L elbow . VSS enroute. 18g L wrist. Ana [phone] Most Recent Vital Signs Temperature 36.9 C 05/26/24 06:35 Temperature Source Temporal Artery Scan 05/26/24 06:35 Pulse 85 05/26/24 10:07 Pulse 93 H 05/26/24 10:01 Respiratory Rate 17 05/26/24 10:07 Respiratory Effort Short of Breath 05/26/24 03:48 Respiratory Depth Normal 05/26/24 03:48 Blood Pressure 167/87 H 05/26/24 10:07 Blood Pressure Mean 121 05/26/24 10:01 Blood Pressure Position Sitting 05/26/24 03:15 Pulse Oximetry 97 05/26/24 10:07 Oxygen Delivery Method Room Air 05/26/24 03:15 Oxygen Flow Rate 0 05/26/24 03:15 Pain Level 10 05/26/24 05:25 Allergies doxycycline Adverse Reaction (Intermediate, Verified 05/26/24 03:21) GI Bleeding Precautions Isolation PUI 05/26/24 03:21 Active Medications Generic Name Dose Route Start Last Admin Trade Name Freq PRN Reason Stop Dose Admin Bisacodyl 10 mg 05/26/24 08:30 05/26/24 08:54 Bisacodyl 5 Mg Tabec PO 10 mg BID GEOFFREY Administration Buspirone HCl 5 mg 05/26/24 08:30 05/26/24 08:53 Buspirone 5 Mg Tab PO 5 mg TID GEOFFREY Administration Duloxetine HCl 90 mg 05/26/24 08:30 05/26/24 08:54 Duloxetine 30 Mg Cap PO 90 mg DAILY GEOFFREY Administration Multivitamins 1 tab 05/26/24 08:30 05/26/24 08:54 Multivitamin Tab PO 1 tab DAILY GEOFFREY Administration IV IV Catheter Type [Right Saline Lock Antecubital] IV Catheter Type [Left Wrist] Peripheral IV IV Catheter Gauge [Right 20 Antecubital] IV Catheter Gauge [Left Wrist] 18 Diet Orders Category Date Time Status Regular/Normal [DIET] Nutrition 05/26/24 Breakfast Active Diagnostics 05/26/24 05/26/24 05/26/24 Range/Units 07:18 04:06 04:00 WBC (4.4-10.8) 10^3/uL RBC (4.36-5.78) 10^6/uL Hgb (13.5-17.5) g/dL Hct (40.0-50.0) % MCV (80-95) fL MCH (27.0-33.0) pg MCHC (32.0-36.0) % RDW (11.8-14.1) % Plt Count (130-400) 10^3/uL MPV (8.0-11.0) fL Immature Gran % % Neutrophils % % Lymphocytes % % Monocytes % % Eosinophils % % Basophils % % Nucleated RBC % (0.0-0.3) % Absolute Neutrophils (1.2-6.7) 10^3/uL Absolute Lymphocytes (1.2-3.4) 10^3/uL Absolute Monocytes (0.1-0.8) 10^3/uL Absolute Eosinophils (0.0-0.7) 10^3/uL Absolute Basophils (0.0-0.2) 10^3/uL VBG Lactate 0.9 (<or=2.0) mmol/L Sodium (136-145) mmol/L Potassium (3.5-5.1) mmol/L Chloride (98-107) mmol/L Carbon Dioxide (21.0-32.0) mmol/L Anion Gap (3-11) mmol/L BUN (7-18) mg/dL Creatinine (0.70-1.30) mg/dL Est GFR (CKD-EPI 2020) (mL/min/1.73m2) Glucose (74-106) mg/dL Calcium (8.5-10.1) mg/dL Magnesium (1.8-2.4) mg/dL Total Bilirubin (0.2-1.0) mg/dL AST (15-37) U/L ALT (16-63) U/L Alkaline Phosphatase (46-116) U/L Total Protein (6.4-8.2) g/dL Albumin (3.4-5.0) g/dL Urine Color Yellow (Yellow) Urine Clarity Sl Cloudy (Clear) Urine pH 6.0 (5-8) Ur Specific Larsen 1.025 (1.005-1.025) Urine Protein >=300 H (Neg-Trace) mg/dL Urine Ketones 15 H (Negative) mg/dL Urine Blood Large H (Negative) Urine Nitrite Negative (Negative) Urine Bilirubin Small H (Negative) Urine Urobilinogen 0.2 (Up to 0.2) mg/dL Ur Leukocyte Esterase Negative (Negative) Urine RBC 0-2 (0-2) HPF Urine WBC 3-5 (0-5) HPF Ur Epithelial Cells Rare (Negative) HPF Urine Crystals Rare Amorphous (Negative) HPF Urine Bacteria Rare (Negative) HPF Urine Casts 5-10 WBC (Negative) LPF Urine Mucus Moderate (Negative) Ur Culture Indicated? No Urine Glucose Negative (Negative) mg/dL COVID-19 Source Nasopharynx SARS-CoV-2 (PCR) Positive A (Negative) Influenza Type A (PCR) Negative (Negative) Influenza Type B (PCR) Negative (Negative) RSV (PCR) Negative (Negative) 05/26/24 Range/Units 03:22 WBC 7.58 (4.4-10.8) 10^3/uL RBC 4.48 (4.36-5.78) 10^6/uL Hgb 14.6 (13.5-17.5) g/dL Hct 42.3 (40.0-50.0) % MCV 94 (80-95) fL MCH 32.6 (27.0-33.0) pg MCHC 34.5 (32.0-36.0) % RDW 13.0 (11.8-14.1) % Plt Count 143 (130-400) 10^3/uL MPV 9.4 (8.0-11.0) fL Immature Gran % 0.4 % Neutrophils % 87.5 % Lymphocytes % 3.6 % Monocytes % 8.4 % Eosinophils % 0.0 % Basophils % 0.1 % Nucleated RBC % 0.0 (0.0-0.3) % Absolute Neutrophils 6.63 (1.2-6.7) 10^3/uL Absolute Lymphocytes 0.27 L (1.2-3.4) 10^3/uL Absolute Monocytes 0.64 (0.1-0.8) 10^3/uL Absolute Eosinophils 0.00 (0.0-0.7) 10^3/uL Absolute Basophils 0.01 (0.0-0.2) 10^3/uL VBG Lactate (<or=2.0) mmol/L Sodium 139 (136-145) mmol/L Potassium 3.8 (3.5-5.1) mmol/L Chloride 102 (98-107) mmol/L Carbon Dioxide 25.9 (21.0-32.0) mmol/L Anion Gap 11.1 H (3-11) mmol/L BUN 20 H (7-18) mg/dL Creatinine 1.0 (0.70-1.30) mg/dL Est GFR (CKD-EPI 2020) 81.98 (mL/min/1.73m2) Glucose 138 H (74-106) mg/dL Calcium 8.7 (8.5-10.1) mg/dL Magnesium 1.9 (1.8-2.4) mg/dL Total Bilirubin 0.41 (0.2-1.0) mg/dL AST 36 (15-37) U/L ALT 10 L (16-63) U/L Alkaline Phosphatase 88 (46-116) U/L Total Protein 7.6 (6.4-8.2) g/dL Albumin 3.8 (3.4-5.0) g/dL Urine Color (Yellow) Urine Clarity (Clear) Urine pH (5-8) Ur Specific Larsen (1.005-1.025) Urine Protein (Neg-Trace) mg/dL Urine Ketones (Negative) mg/dL Urine Blood (Negative) Urine Nitrite (Negative) Urine Bilirubin (Negative) Urine Urobilinogen (Up to 0.2) mg/dL Ur Leukocyte Esterase (Negative) Urine RBC (0-2) HPF Urine WBC (0-5) HPF Ur Epithelial Cells (Negative) HPF Urine Crystals (Negative) HPF Urine Bacteria (Negative) HPF Urine Casts (Negative) LPF Urine Mucus (Negative) Ur Culture Indicated? Urine Glucose (Negative) mg/dL COVID-19 Source SARS-CoV-2 (PCR) (Negative) Influenza Type A (PCR) (Negative) Influenza Type B (PCR) (Negative) RSV (PCR) (Negative) 05/26/24 04:05 Blood Culture - Pending Blood 05/26/24 04:00 Blood Culture - Pending Blood Intake and Output - 24 Hour Total 05/26/24 03:05 thru 02/18/25 10:03 Intake Total 200 Balance 200 Weight 102.9 kg Intake: IV 200 Falls Risk Assessment History of Falls Previous History 05/26/24 03:23 Contributing Factors Confusion,Unstable, 05/26/24 03:23 Impairments,Incontinence, Medications Ambulatory Aids Uses ambulatory device + 05/26/24 03:23 Tubes/Lines None 05/26/24 03:23 Gait Evaluation W/any additional score 05/26/24 03:23 Cognition No cognitive impairment 05/26/24 03:23 Fall Total Score 80 05/26/24 03:23 Level of Risk Maximum Risk 05/26/24 03:23 Problems (Last Reviewed 05/26/24 @ 05:57 by Marco Antonio Zhu MD) COVID (Acute) v v v v v v v v v Sending and/or Receiving Nurses: Please use comment section below to note any information pertinent to the patient hand-off not included above. Information / Comments: Vital Signs 167/87, HR 85, Resp 17, SaO2 97% RA, Skin tear on left elbow. 18g left wrist, also has Covid, Remdesiver given in ED. Report received from: JEROME Power (ED,RN)
[2024-05-26] MEDS: Acetaminophen 325 MG TAB 650 MG PO (12:32)
[2024-05-26] MEDS: Ibuprofen 600 MG TAB PO (15:08)
[2024-05-26] MEDS: Normal Saline 1,000 ML 100 ML IV (15:09)
[2024-05-26] MEDS: Carbidopa 50/Levodopa 200 CR TABCR 1 TAB PO ×2 (17:58→20:40)
[2024-05-26] MEDS: Carbidopa 25/Levodopa 100 TAB PO (20:40)
[2024-05-27] VITALS (7 sets, daily range): BP systolic 111–141; BP diastolic 68–75; PULSE 78–98; RESP 18–20; TEMP 35.9–39.5; O2SAT 92–95
[2024-05-27] MEDS: Bisacodyl 5 MG TABEC 10 MG PO ×2 (09:10→20:40)
[2024-05-27] MEDS: Carbidopa 50/Levodopa 200 CR TABCR 1 TAB PO ×4 (09:10→20:40)
[2024-05-27] MEDS: Carbidopa 25/Levodopa 100 TAB PO ×4 (09:10→20:41)
[2024-05-27] MEDS: Acetaminophen 325 MG TAB 650 MG PO ×2 (09:10→15:53)
[2024-05-27] MEDS: DULoxetine 30 MG CAP 90 MG PO (09:10)
[2024-05-27] MEDS: busPIRone 5 MG TAB PO ×3 (09:10→20:40)
[2024-05-27] MEDS: Multivitamin TAB 1 TAB PO (09:11)
[2024-05-27] MEDS: REMDESIVIR 100 MG in Normal Saline 250 ML 250 MG IVPB (09:33)
--- NOTE | 2024-05-27 09:35 | PDOC.CMIN ---
Date of service: 05/27/24 Time of Service: 09:35 Care Management Initial Assmt Initial Assessment Reason for Hospitalization: Covid Functional Status/Living Situation Patient Presentation: Cristian has covid and is being treated with Remdesivir. CM was unable to connect with him or his Ana via phone after making several attempts. Per nursing, Cristian's daughter visited today and reported that Ana is home and also quite sick. CM will reach out to Cristian's daughter if he elects to add her to his HIPAA. CM will follow. Town of Residence: [facility] Resides with: Spouse ( Ana) Employment Status: Retired Instrumental Activities of Daily Living (ADLs): Requires support Medications Medication Management: No Issues/Barriers identified Advance Directives Advance Directives: Do you have an Advance Directive: AD On File at [facility]: N 03/06/24 15:45 Date Asked 05/26/24 05/26/24 10:15 AD Date Reviewed COLST On File at [facility] COLST Date Scanned Code Status Resuscitation Status Full Code Portal Pt does not currently have a portal and education provided: Yes Insurance Coverage/Financial Issues Insurance: Medicare Care Team Visit Care Team Role Provider Type Lizbeth Reyes APRN MD [facility] STAFF PHYSICIAN Axel Jiménez Primary Care Provider NON-[facility] STAFF PHYSICIAN Lauren Espino MD Emergency Provider [facility] STAFF PHYSICIAN Marco Antonio Zhu MD Admit Provider [facility] STAFF PHYSICIAN Attending Provider Discharge Potential Discharge Needs: PCP F/U Appt Anticipated Barriers to Discharge: Medical Status Patient/Family Education Needs: Review discharge instructions, discuss Ask Me Three Transportation: Private vehicle Plan: Anticipate, Cristian will discharge home with a new order for Full [facility] services via private vehicle with family when medically ready. He will follow up with his community providers and discharge plan of care as directed. CM will follow. Social Determinants of Health Screening Social Determinants of Health last assessed: 05/28/24 Will the Patient Participate in the Screening?: Unable to obtain Do you worry about having a steady place to live?: no Problems where you live: no known problems In the past 12 months, have you had to go without electric, gas, oil or water in your home?: no Have you or anyone in your house had to go without enough food to eat?: no Has lack of transportation kept you from medical appointments or from doing things needed for daily living?: no Has anyone in your life made you feel unsafe or unsupported?: no How hard is it for you to pay for the very basics like food, housing, medical care, and heating? Would you say it is:: Not hard at all Do you want help finding or keeping work or a job?: I do not need or want help If for any reason you need help with day-to-day activities such as bathing, preparing meals, shopping, managing finances, etc., do you get the help you need?: I get all the help I need How often do you feel lonely or isolated from those around you?: Rarely Do you speak a language other than Irish at home?: No Does the patient want assistance with any of the above?: No Health Related Social Needs Health related social needs: feeling lonely/isolated (Z60.8) PFSH All Active Problems (Updated 05/27/24 @ 09:59 by Lizbeth Reyes APRN) Discharge planning issues (Acute) Fall (Acute) Weakness generalized (Acute) On deep vein thrombosis (DVT) prophylaxis (Acute) COVID (Acute) Social History Smoking/Tobacco Use Status: Never Smoking risk assessment performed?: Yes Alcohol Intake: current Alcohol Intake frequency: a few times a week Drug use: Never Substance use type: does not use Housing: house Do you feel safe at home: Yes Do you feel safe in your relationship?: Yes
--- NOTE | 2024-05-27 09:51 | W.PM.PROGNOT ---
Date of Service Date of service: 05/27/24 Time of Service: 09:51 Assessment and Plan Assessment and plan (1) COVID: Status: Acute Assessment and plan: COVID as per serology, no findings of pneumonia or hypoxia per imaging or vital signs. After fall patient was profoundly weak in the ED. Continue remdesivir Incentive spirometry and Vibra Pep Continue chest PT (2) On deep vein thrombosis (DVT) prophylaxis: Status: Acute Assessment and plan: On Lovenox (3) Weakness generalized: Status: Acute Assessment and plan: Physical therapy consult pending (4) Fall: Status: Acute Assessment and plan: Reported falling at home without head strike, not on anticoagulation therapy. Physical therapy consult (5) Discharge planning issues: Status: Acute Assessment and plan: Discharge home when appropriate as per physical therapy recommendations Discussed with Dr. Cardoso Subjective Subjective Patient reports: tolerating liquids well, tolerating a regular diet, shortness of breath and afebrile; denies diarrhea, nausea or vomiting Exam Narrative Exam Narrative: Alert and oriented x 3 moves all 4 extremities nonfocal, spasticity and facial features due to parkinsonism, lungs are coarse with scattered rhonchi clearing somewhat with weak cough, heart is regular S1-S2 no murmur, positive pulses to all 4 extremities, abdomen is nondistended soft nontender no CVA tenderness Objective Last Vital Signs Temp 38 C H 05/27/24 09:10 Pulse 96 H 05/27/24 08:48 Resp 20 05/27/24 08:48 BP 136/68 05/27/24 08:48 Pulse Ox 92 05/27/24 08:48 PAWSS Have you Been Recently Intoxicated or Drunk Within the Last 30 days?: Unable to Obtain Have you Ever Experienced Previous Episodes of Alcohol Withdrawal?: Unable to Obtain Have you ever Experienced Withdrawal Seizures?: Unable to Obtain Have you ever Experienced Delirium Tremens(DT)s?: Unable to Obtain Have you ever undergone Alcohol Rehabilitation Treatment (i.e, inpt ot outpatient treatment programs)?: Unable to Obtain Have you ever Experienced Blackouts?: Unable to Obtain Have you ever Combined Alcohol with other Downers within the last 90 days?: Unable to Obtain Have you ever Combined Alcohol with any other Substance of Abuse during the last 90 days?: Unable to Obtain Positive Blood Alcohol level on Presentation? [PCS.BAL]: Unable to Obtain Evidence of Increased Autonomic Activity (i.e. HR>120, tremor, sweating, agitation, nausea)?: Unable to Obtain Time Spent with Patient Time Spent with Patient: >50 minutes Time was spent: preparing to see the patient(eg.review tests), obtaining and/or reviewing separately otained hiistory, ordering medications,tests, procedures, referring, communicating with other health healthcare insurance sales agent, indepentently interpreting results, counseling the patient and care coordination
[2024-05-27] MEDS: Enoxaparin 40 MG/0.4 ML SYR SC (11:34)
--- NOTE | 2024-05-27 12:41 | W.NUTRFU ---
Date of service: 05/27/24 Time of Service: 12:41 Nutrition Note NOTE: Cristian is a 69to male patient admitted yesterday with COVID- PMH significant for parkinson's and weakness. Fair intake thus far. weight hx shows a trend of weight gain. Ordered for regular diet with normal consistencies - will monitor intake. Total protein and albumin labs wnl yesterday. Takes MVI for nutrition support at home and this was ordered for him. Suggest checking vitamin D as he has been on this at home for deficiency. Pt is initially assessed as low nutrition risk. Will monitor labs, weight, po intake for significant changes to nutritional status Time Spent in Nutritional Counseling and Treatment: 0
[2024-05-27] MEDS: Ibuprofen 600 MG TAB PO (15:28)
[2024-05-28 06:26] LABS: Abs Immature Grans 0.01 10^3/uL (0.0-0.06); HCT 43.3 % (40.0-50.0); HGB 14.7 g/dL (13.5-17.5); MCH 32.7 pg (27.0-33.0); MCHC 33.9 % (32.0-36.0); MCV 96 fL (80-95); MPV 9.7 fL (8.0-11.0); Platelet Count 135 10^3/uL (130-400); RBC 4.49 10^6/uL (4.36-5.78); RDW-SD 46.8 fL; WBC 5.06 10^3/uL (4.4-10.8)
[2024-05-28 06:38] LABS: Anion Gap 5.1 mmol/L (3-11); BUN 29 mg/dL (7-18); CO2 31.9 mmol/L (21.0-32.0); CREATININE 0.8 mg/dL (0.70-1.30); Calcium 9.1 mg/dL (8.5-10.1); Chloride 105 mmol/L (98-107); Glucose 107 mg/dL (74-106); Potassium 3.8 mmol/L (3.5-5.1); Sodium 142 mmol/L (136-145)
[2024-05-28 07:31] VITALS: BP 132/80; PULSE 85; RESP 18; TEMP 37.9; O2SAT 95
[2024-05-28 07:40] LABS: Absolute Lymphocyte Count 0.86 10^3/uL (1.2-3.4); Absolute Neutrophil Count 3.74 10^3/uL (1.2-6.7); Bands % 1 %; Diff Comment Manual Differential; Metamyelocytes % 1; RBC Morphology Normal
[2024-05-28] MEDS: Multivitamin TAB 1 TAB PO (08:53)
[2024-05-28] MEDS: DULoxetine 30 MG CAP 90 MG PO (08:54)
[2024-05-28] MEDS: Carbidopa 50/Levodopa 200 CR TABCR 1 TAB PO ×2 (08:55→11:21)
[2024-05-28] MEDS: busPIRone 5 MG TAB PO ×2 (08:55→13:08)
[2024-05-28] MEDS: Carbidopa 25/Levodopa 100 TAB PO ×2 (08:56→11:21)
[2024-05-28] MEDS: Bisacodyl 5 MG TABEC 10 MG PO (08:57)
[2024-05-28] MEDS: Acetaminophen 325 MG TAB 650 MG PO (09:02)
--- NOTE | 2024-05-28 09:10 | W.PM.PROGNOT ---
Date of Service Date of service: 05/28/24 Time of Service: 09:10 Assessment and Plan Assessment and plan (1) COVID: Status: Acute Assessment and plan: COVID as per serology, no findings of pneumonia or hypoxia per imaging or vital signs. After fall patient was profoundly weak in the ED. Continue remdesivir Incentive spirometry and Vibra Pep Continue chest PT (2) On deep vein thrombosis (DVT) prophylaxis: Status: Acute Assessment and plan: On Lovenox (3) Weakness generalized: Status: Acute Assessment and plan: Physical therapy consult pending (4) Fall: Status: Acute Assessment and plan: Reported falling at home without head strike, not on anticoagulation therapy. Physical therapy consult (5) Discharge planning issues: Status: Acute Assessment and plan: Discharge home when appropriate as per physical therapy recommendations Discussed with Dr. Cardoso Exam Narrative Exam Narrative: Alert and oriented x 3 moves all 4 extremities nonfocal, spasticity and facial features due to parkinsonism, lungs are coarse with scattered rhonchi clearing somewhat with weak cough, heart is regular S1-S2 no murmur, positive pulses to all 4 extremities, abdomen is nondistended soft nontender no CVA tenderness Objective Last Vital Signs Temp 37.9 C H 05/28/24 07:31 Pulse 85 05/28/24 07:31 Resp 18 05/28/24 07:31 BP 132/80 05/28/24 07:31 Pulse Ox 95 05/28/24 07:31 Laboratory Results - last 24 hr 05/28/24 06:03 WBC 5.06 RBC 4.49 Hgb 14.7 Hct 43.3 MCV 96 H MCH 32.7 MCHC 33.9 RDW 13.0 Plt Count 135 MPV 9.7 Immature Gran % See Differential Neutrophils % 73.0 Band Neutrophils % 1 Lymphocytes % 17.0 Monocytes % 8.0 Eosinophils % 0.0 Basophils % 0.0 Metamyelocytes % 1 Nucleated RBC % 0.0 Absolute Neutrophils 3.74 Absolute Lymphocytes 0.86 L Absolute Monocytes 0.40 Absolute Eosinophils 0.00 Absolute Basophils 0.00 RBC Morphology Normal Sodium 142 Potassium 3.8 Chloride 105 Carbon Dioxide 31.9 Anion Gap 5.1 BUN 29 H Creatinine 0.8 Est GFR (CKD-EPI 2020) 96.40 Glucose 107 H Calcium 9.1 PAWSS Have you Been Recently Intoxicated or Drunk Within the Last 30 days?: Unable to Obtain Have you Ever Experienced Previous Episodes of Alcohol Withdrawal?: Unable to Obtain Have you ever Experienced Withdrawal Seizures?: Unable to Obtain Have you ever Experienced Delirium Tremens(DT)s?: Unable to Obtain Have you ever undergone Alcohol Rehabilitation Treatment (i.e, inpt ot outpatient treatment programs)?: Unable to Obtain Have you ever Experienced Blackouts?: Unable to Obtain Have you ever Combined Alcohol with other Downers within the last 90 days?: Unable to Obtain Have you ever Combined Alcohol with any other Substance of Abuse during the last 90 days?: Unable to Obtain Positive Blood Alcohol level on Presentation? [PCS.BAL]: Unable to Obtain Evidence of Increased Autonomic Activity (i.e. HR>120, tremor, sweating, agitation, nausea)?: Unable to Obtain
[2024-05-28 10:17] VITALS: TEMP 37.8
[2024-05-28] MEDS: Normal Saline Flush 10 ML SYR IVP ×2 (10:38→11:47)
[2024-05-28] MEDS: Enoxaparin 40 MG/0.4 ML SYR SC (10:39)
--- NOTE | 2024-05-28 11:06 | IN_ITS ---
PT Notes Visit Reasons: Covid Inpatient Physical Therapy Evaluation Date: 05/28/2024 Referring Doctor: Lizbeth Reyes NP PT Orders: PT CONSULT: Fall Safety assessment Precautions: COVID, Fall RISK, Patient Profile/Admitting Diagnosis: Pt is a 69yo male with Parkinson's, who presented with 4 days of cough, weakness, sore throat, nausea. Pt reported he Slipped out of bed (no significant trauma), unable to get up so EMS summoned. While in ER findings of note for temp to 39.4, O2 sats mid-high 90s on RA, COVID positive swab and negative CXR. Patient given Albuterol updraft trial due to rattling in chest (not a smoker) without effect. Pt admitted for medical management of COVID. PMHX: Parkinson's Disease, h/o recurrent falls, Social History/Home Situation: Pt resides in home with his ( who is currently sick as well) with multiple steps to enter with rail. Pt independent ambulation with cane . Pt with multiple falls . Pt able to perform ADLs with some assist depending on time of day and timing of medication. 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 He has participated in outpatient PT in the past for gait and balance deficits Equipment Owned/DME: cane , FWW Subjective: Pt reports he feel Fragile and not well enough to go home yet. Objective: [] General Observation: Pt presents in bed masked appearance to face, poor articulation of words d/t PD. Pt with ecchymotic area to left knee and scabbed area to right knee. Mental Status:Alert and oriented x 3, slow to respond to questions with significantly low volume to his voice. Pain: denied Vital Signs: monitored by Nursing sats on RA>92% throughout session ROM: BUE shoulders WFL, elbows WNL, hands and wrist WFL demonstrates opposition to all fingers BLE WFL except right ankle DF neutral Strength: - demonstrates full AROM BUE against gravity. (+) cogwheeling elbow and impaired accuracy with finger to nose and MINI BLE: (+) cogwheeling knee, diminished MINI accuracy and heel to de luna BLE , hips grossly 3-/5, knees 3-/5 ankle 3/5 delayed reactions Sensation: intact Bed Mobility/Transfers: supine to sit supervision transfers sit to stand: CGA with increased time stand to sit min A bed to chair: min A with continuous cues for safe approach as pt attempts to sit prior to alligning BLE against chair. Pt attempts to side sit in chair with poor insight into unsafe situation of sitting prior to getting his back alligned with the chair. Gait: amb with FWW with min A 50 feet . Pt demonstrates reciprocal pattern with B foot clearance after receiving PD medications. Pt with no freezing episodes during ambulation but did demonstrate freezing as approached chair. Balance: [] Static Sitting: good Dynamic Sitting: Fair Static Standing: Fair with BUE Dynamic Standing: Poor + Special Tests: Mobility Limitations Standardized Measure [facility] AM-PAC 6 clicks Basic Mobility Inpatient Short Form: Raw Score: 16 CMS Score: 54.16% Informed Consent/Education: Patient instructed in purpose of PT consult and plan of care. Assessment: Patient is a 69year old male referred to physical therapy services with the diagnosis of COVID. Patient presents with clinical signs and symptoms consistent with admitting diagnosis, as demonstrated by the following impairment level findings: 1. bradykinesia BUE and BLE major muscle groups 2. Impaired balance reactions 3. impaired functional activity tolerance 4. impaired pacing/breath control techniques. Impairments are contributing to the following functional limitations: 1. AMPAC score. 2. decline in bed mobility skills 3. decline in transfer skills 4. inability to ambulate without assistance and device 5. inability to perform stairs 6. Fall risk 7. Increased time to complete ADL/mobility skills Patient is assessed as a Moderate [id number] complexity based on the following: History: Pt is 69 yo male presenting with Parkinson's disease and COVID Examination: pt presents with physical and functional deficits as outlined above Presentation: evolving Decision Making: moderate Goals: Goals X1 week 1. Independent bed mobility 2. Independent transfers 3. supervision ambulating with LRD >100 feet without LOB 4. supervision 12 steps with rial and device to safely enter and exit his home Plan of Care/Treatment Plan: 1-2x/day, 7 days/week x 1 week. Plan of care has been reviewed with the [employer] providing the service under Physical Therapy direction. Initiate Physical Therapy intervention for strengthening, bed mobility, transfers, gait, stairs, balance training, use of assistive device. DISCHARGE RECOMMENDATIONS: [] [] Home with no services [] [X] Home with services PT when medically appropriate for discharge [] Home with outpatient PT [] [] SNF for continued rehabilitation [] [] Instrument Specialist Care [] [] SNF versus LTC based on ability to participate and progress [] TREATMENT CODE/TIME: 49183, 55394/ [id number]
[2024-05-28 11:31] VITALS: BP 135/81; PULSE 91; RESP 18; TEMP 36.8; O2SAT 94
--- NOTE | 2024-05-28 11:59 | PDOC.CMDIS ---
Date of service: 05/28/24 Time of Service: 11:59 LACE Index Scoring Tool Questions: Length of Stay (in days): 2 Was the patient admitted via the E.D.?: Yes E.D. Visits: 2 Answers: Total Score: 7 Risk of Readmission: Low Risk Care Management Discharge Plan Reason for Hospitalization: Covid Discharge Plan: Discharge home with full [facility] services. Family to provide transportation. Cristian will follow up with his PCP and discharge plan of care as instructed. Patient/Family Education Needs: Review discharge instructions, limitations, medications and plan to follow up with PCP. Discuss ask me three. Services Needed at Discharge: Home Health Care Services (New [facility] RN/PT/OT/HEAVY EQUIPMENT PLUMBING SUPERVISOR) SDOH Health Related Social Needs: Health related social needs feeling lonely/isolated (Z60.8)
--- NOTE | 2024-05-28 13:54 | DSE_ITS ---
Date of service: 05/28/24 Time of Service: 13:55 DS: Diagnosis Discharge Diagnosis (1) COVID: Status: Acute (2) On deep vein thrombosis (DVT) prophylaxis: Status: Acute (3) Weakness generalized: Status: Acute (4) Fall: Status: Acute (5) Discharge planning issues: Status: Acute Discharge Plan Disposition Patient Disposition: Home W/Home Health Services Condition: Improving Discharge Details Reason For Visit: Covid Admit Date/Time: 05/26/24 06:06 Admit Provider: Marco Antonio Zhu Attending Provider: Marco Antonio Zhu Primary Care Provider: Axel Jiménez Hospital Course Hospital Course: This 69 years old male patient with past medical history of Parkinson's, using walker at baseline for ambulation scented to the ED at [facility] on 05/26/2024 via EMS for evaluation of generalized weakness status post fall out of bed at strike or loss of consciousness. EMS was called for lift assist as the patient was patient unable to get back to bed and spouse was unable to provide assistance. Arrival to the ED the patient was hemodynamically stable febrile at 102.9 without hypoxia but displayed transient tachycardia over 90 and tachypnea over 20. In the ED for significant for COVID-positive test. Blood work was unremarkable except for slight elevation in BUN most likely due to dehydration; creatinine was within baseline . The patient was unable to move independently in the ED and was admitted by the hospitalist team for sepsis in the setting of COVID infection and ambulatory dysfunction. Treatment with remdesivir was started in the ED. During the stay treatment continued for 3 doses of remdesivir. The patient had no need for oxygen supplementation . Physical therapy recommendation was for the patient to be discharged home with home health services and patient will be discharged home with home health PT, OT, nursing, and medical scribe. The patient can take as needed acetaminophen and ibuprofen for aches and pain as well as fevers. Frequent acapella device use and oral fluid intake is also encouraged to continue once discharged home. Discussed with Dr. Cardoso Home Meds and New Rx's Prescriptions: New acetaminophen 325 mg Tablet 650 mg PO Q6H PRNQty: 24 0RF ibuprofen 600 mg Tablet 600 mg PO Q8H PRNQty: 15 0RF Continued carbidopa-levodopa 2 tab PO QID Patient Comments: Two separate strengths 25/100 and 50/200, both administered QID duloxetine [Cymbalta] 30 mg capsule,delayed release(DR/EC) 90 mg PO DAILY bisacodyl 5 mg tablet,delayed release (DR/EC) 10 mg PO BID buspirone 5 mg tablet 5 mg PO TID cholecalciferol (vitamin D3) 1,250 mcg (50,000 unit) capsule 1,250 mcg PO QWEEK clotrimazole 1 % cream 1 applic topical DAILY PRN multivitamin with iron Tablet 1 tab PO DAILY polyethylene glycol 3350 [Miralax] 17 gram/dose powder 17 g PO DAILY PRN Discharge Instructions Referrals: Axel Jiménez [Primary Care Provider] - (F/u within 7 days of discharge please) Activity:: Activity as Tolerated Equipment/Supplies:: Walker Diet:: As Tolerated Discharge Orders Discharge Orders: Discharge Order (Routine); Ordered 05/28/24 Ordered By: Lizbeth Reyes DS: Summary Time Spent with Patient providing and/or coordinating discharge services: Greater than 30 minutes Status at Discharge Functional status at discharge: uses cane/walker Overall status at discharge: patient is progressing back to baseline Mental Status: mental status grossly normal Speech and Movement: speech and movement normal Mood: congruent mood Affect: normal affect Quality:SDOH Health Related Social Needs: Health related social needs feeling lonely/isolated (Z 60.8) Exam Narrative Exam Narrative: Alert and oriented x 3, nonfocal, spasticity and facial features specific to parkinsonism, lungs are coarse with scattered rhonchi clearing somewhat with cough, heart is regular S1-S2 no murmur, positive pulses to all 4 extremities, abdomen is nondistended soft nontender, no CVA tenderness,moves all 4 extremities Psych Mental Status: mental status grossly normal Speech and Movement: speech and movement normal Mood: congruent mood Affect: normal affect DS: Data Vitals/I&O Vitals and I&O: Vital Signs Temperature 36.8 C 05/28/24 11:31 Temperature Source Temporal Artery Scan 05/28/24 11:31 Pulse 91 H 05/28/24 11:31 Pulse Rhythm Regular 05/26/24 11:26 Pulse 93 H 05/26/24 10:01 Respiratory Rate 18 05/28/24 11:31 Respiratory Effort Accessory Muscle Use, Nasal Flaring, Pursed Lip, Incrsd Work of Breathing 05/26/24 11:26 Respiratory Depth Shallow 05/26/24 11:26 Respiratory Pattern Tachypnea 05/26/24 11:26 Blood Pressure 135/81 05/28/24 11:31 Blood Pressure Mean 121 05/26/24 10:01 Blood Pressure Position Sitting 05/26/24 03:15 Pulse Oximetry 94 05/28/24 11:31 Oxygen Delivery Method Room Air 05/28/24 11:31 Oxygen Flow Rate 0 05/28/24 11:31 Pain Level 0 05/28/24 11:31 Comment Temp reassess after medication administration, see MAR. 05/28/24 10:17 Intake & Output 05/27/24 05/28/24 05/28/24 23:59 11:59 23:59 Intake Total 200 / 1691.667 440 / 440 Output Total 400 / 400 Balance 200 / 1491.667 40 / 40 Intake: IV 100 / 100 Oral 200 / 1060 340 / 340 Output: Urine 400 / 400 Other: Urine Color Yellow Dark Mimi Urine Appearance Clear Comment unable to measure- went in brief very small amount in brief from ambulating Stool Size Moderate Large Stool Characteristics Soft Formed Formed Brown Data Completed and Pending Labs on day of discharge: Labs from last 24 hours 05/28/24 06:03 WBC 5.06 RBC 4.49 Hgb 14.7 Hct 43.3 MCV 96 H MCH 32.7 MCHC 33.9 RDW 13.0 Plt Count 135 MPV 9.7 Immature Gran % See Differential Neutrophils % 73.0 Band Neutrophils % 1 Lymphocytes % 17.0 Monocytes % 8.0 Eosinophils % 0.0 Basophils % 0.0 Metamyelocytes % 1 Nucleated RBC % 0.0 Absolute Neutrophils 3.74 Absolute Lymphocytes 0.86 L Absolute Monocytes 0.40 Absolute Eosinophils 0.00 Absolute Basophils 0.00 RBC Morphology Normal Sodium 142 Potassium 3.8 Chloride 105 Carbon Dioxide 31.9 Anion Gap 5.1 BUN 29 H Creatinine 0.8 Est GFR (CKD-EPI 2020) 96.40 Glucose 107 H Calcium 9.1 Preliminary micro results at discharge 05/26/24 04:05 Blood Culture - Preliminary Blood NO GROWTH 48 HOURS 05/26/24 04:00 Blood Culture - Preliminary Blood NO GROWTH 48 HOURS PFSH All Active Problems (Updated 05/27/24 @ 09:59 by Lizbeth Reyes APRN) Discharge planning issues (Acute) Fall (Acute) Weakness generalized (Acute) On deep vein thrombosis (DVT) prophylaxis (Acute) COVID (Acute) Social History Smoking/Tobacco Use Status: Never Smoking risk assessment performed?: Yes Alcohol Intake: current Alcohol Intake frequency: a few times a week Drug use: Never Substance use type: does not use Housing: house Do you feel safe at home: Yes Do you feel safe in your relationship?: Yes Time Spent with Patient Time Spent with Patient: 70-84 minutes4 Time was spent: preparing to see the patient(eg.review tests), obtaining and/or reviewing separately otained hiistory, ordering medications,tests, procedures, referring, communicating with other health medical care administrator, indepentently interpreting results, counseling the patient and care coordination
--- NOTE | 2024-05-28 14:16 | PDOC.HHF2F_ITS ---
Home Health Referral Home Health Orders Clinical synopsis of why skilled professionals are needed: This 69 years old male patient with past medical history of Parkinson's, using walker at baseline for ambulation scented to the ED at [facility] on 05/26/2024 via EMS for evaluation of generalized weakness status post fall out of bed at strike or loss of consciousness. EMS was called for lift assist as the patient was patient unable to get back to bed and spouse was unable to provide assistance. Arrival to the ED the patient was hemodynamically stable febrile at 102.9 without hypoxia but displayed transient tachycardia over 90 and tachypnea over 20. In the ED for significant for COVID-positive test. Blood work was unremarkable except for slight elevation in BUN most likely due to dehydration; creatinine was within baseline . The patient was unable to move independently in the ED and was admitted by the hospitalist team for sepsis in the setting of COVID infection and ambulatory dysfunction. Treatment with remdesivir was started in the ED. During the stay treatment continued for 3 doses of remdesivir. The patient had no need for oxygen supplementation . Physical therapy recommendation was for the patient to be discharged home with home health services and patient will be discharged home with home health PT, OT, nursing, and medical office manager. The patient can take as needed acetaminophen and ibuprofen for aches and pain as well as fevers. Oral fluid intake is also encourage once discharged home. Discussed with Dr. Cardoso Medical diagnosis necessitation home health referral: Sepsis d/t COVID infection, weakness , s/p fall Registered Nurse: Check all that apply Instruct on new or changed medication(s)/assess compliance: Ordered Assess for exacerbation of medical condition, instruct patient/caregivers on signs and symptoms to report for early detection: Ordered Physical Therapist: Check all that apply Increase strength & endurance for safe mobility at home: Ordered To design/establish home maintenance program: Ordered Fall reduction therapy program for patient with history of frequent falls: Ordered Home safety evaluation and teaching/gait training including stair management (if applicable): Ordered Better Breathing Program: Ordered Occupational Therapist: Evaluate and treat for patient unable to perform ADL/IADL/self-care: Ordered Upper extremity strengthening, range and motion: Ordered Beater Room Helper: Assist with community resources: Ordered Assist with long term care pharmacist care planning: Ordered Home Bound Status Requires the aid of supportive device (check all that apply): Walker Describe why leaving home would require a considerable and taxing effort: Requires frequent rest periods and Safety Concerns: describe (s/p fall at home ) Encounter Date and Reason: I certify that a FTF encounter for this patient was performed on May 28, 2024 and that such encounter was related to the primary reason the patient requires home health services. The encounter was conducted in the following manner: * By me as the certifying physician, FITNESS CENTRE MANAGER, PA or * By an inpatient physician, FITNESS CENTRE MANAGER or PA during an inpatient stay who communicated findings to me, Certification And Authentication I certify that I composed the above information based on my clinical judgment relating to this patient's medical condition and, if applicable, clinical findings communicated to me by the NPP or inpatient physician who performed the FTF encounter. Name of Provider that will be monitoring home health services: Axel Jiménez
[2024-05-28 15:33] VITALS: BP 129/75; PULSE 89; RESP 18; TEMP 37; O2SAT 94
== END 2024-05-28 15:47 | disposition home health service (06) | DRG 179 ==
LOC: ER 10:15 → MS 10:29
PROVIDERS: Admitting Provider General Practice; Emergency Provider Student in an Organized Health Care Education/Training Program; PCP Family Medicine; Responsible Provider Nurse Practitioner Acute Care; Visit Provider General Practice
DX: U07.1 COVID-19 (principal); R53.1 Weakness; W19.XXXA Unspecified fall, initial encounter; W06.XXXA Fall from bed, initial encounter; G20.C Parkinsonism, unspecified; I45.10 Unspecified right bundle-branch block; Z96.82 Presence of neurostimulator; Z79.899 Other long term (current) drug therapy
CPT/HCPCS: 00123; 36415; 80048; 80053; 87040; 87637; 93005; 96365; 96375; 97162; 97530; 99285; J1650; 71046; 81003; 81015; 83605; 83735; 85025; 93010; 99221; 99233; 99239; J0131; J0248; J1885; J3490